=== PATIENT | male | born 1960 | race African-American/Black ===

== ENCOUNTER 2022-05-14 11:56 | Emergency (ER) | payer MEDICARE, OTHER, SELFPAY ==
[2022-05-14] VITALS (15 sets, daily range): BP systolic 125–138; BP diastolic 59–68; PULSE 65–77; RESP 14–28; TEMP 37.5–37.6; O2SAT 96–99
--- NOTE | ~2022-05-14 | CT_ITS ---
EXAMINATION: CT brain wo con DATE: 05/14/2022 13:17 INDICATION: Dizziness for 2 months. TECHNIQUE: Computed tomography (CT) of the head was performed without intravenous contrast. The dose- length product was 681.00 mGy-cm. Automated exposure control and iterative reconstruction technique w ere employed. COMPARISON: None FINDINGS: Generalized atrophy. There are scattered mild periventricular and subcortical white matter changes, most likely related to small vessel ischemic disease (microangiopathy). No acute intracrania l hemorrhage, infarction, mass or mass effect. There is intracranial atherosclerosis. Paranasal sinus es demonstrate mild mucosal thickening of the maxillary and ethmoid sinuses. There is a left mastoid effusion. IMPRESSION: 1. No acute intracranial abnormality. 2: Chronic age-related findings. Reviewed, dictated and finalized at location A.
--- NOTE | 2022-05-14 11:58 | ECG_ITS ---
Measurements Intervals [place] Rate: 75 P: 37 CO: 144 QRS: -2 QRSD: 93 T: 70 QT: 380 QTc: 426 Interpretive Statements SINUS RHYTHM NONSPECIFIC T-WAVE ABNORMALITY ABNORMAL ECG NO PREVIOUS ECG AVAILABLE FOR COMPARISON Electronically Signed On 05-14-2022 14:36:36 CDT by Randal Alvarez M.D.
--- NOTE | 2022-05-14 12:50 | ED.DIZZY ---
HPI - Dizziness General Chief Complaint: Dizziness Stated Complaint: dizzy Time Seen by Provider: 05/14/22 12:44 History of Present Illness HPI Narrative: Patient is a 61-year-old male here for evaluation of intermittent lightheadedness over the past 2 months. Patient states that dizziness will come on without obvious trigger, and is accompanied by a right-sided throbbing headache. He states that it has worsened in nature over the past 2 months, and his episodes are becoming more frequent. He did have a syncopal episode 2 days ago after standing for a prolonged period of time which was preceded by the lightheadedness. Took his BP at that time and was noted to be low. No blood thinner use. He denies any preceding chest pain or shortness of breath prior to the syncopal episode. Patient was seen at the [facility] 2 days ago for this, he had blood work ordered, but states that he did not want to wait for the results and wanted to be evaluated today. He denies any weakness, visual changes, chest pain, shortness of breath, abdominal pain, nausea, vomiting, ear pain or decreased hearing. Related Data Home Medications Medication Instructions Recorded Confirmed alcohol swabs (Alcohol Prep Pads) See Rx Instructions .Route .COMPLEX 02/20/22 alogliptin 25 mg tablet See Rx Instructions .Route .COMPLEX 02/20/22 alprostadil 40 mcg intracavernosal See Rx Instructions .Route .COMPLEX 02/20/22 kit amlodipine 10 mg tablet (Norvasc) See Rx Instructions .Route .COMPLEX 02/20/22 blood sugar diagnostic (Accu-Chek 02/20/22 Guide test strips) bupropion HCl 150 mg tablet,12 hr See Rx Instructions .Route .COMPLEX 02/20/22 sustained-release carvedilol 6.25 mg tablet 6.25 mg PO Q12H 02/20/22 cholecalciferol (vitamin D3) 25 25 mcg PO DAILY 02/20/22 mcg (1,000 unit) tablet empagliflozin 25 mg tablet 25 mg PO DAILY 02/20/22 erythromycin 5 mg/gram (0.5 %) eye See Rx Instructions .Route .COMPLEX 02/20/22 ointment glucose 4 gram chewable tablet See Rx Instructions .Route 02/20/22 .COMPLEX PRN metformin 1,000 mg tablet 1,000 mg PO BID 02/20/22 nicotine 21 mg/24 hr daily See Rx Instructions .Route .COMPLEX 02/20/22 transdermal patch omeprazole 20 mg capsule,delayed See Rx Instructions .Route .COMPLEX 02/20/22 release rosuvastatin 40 mg tablet See Rx Instructions .Route .COMPLEX 02/20/22 sertraline 100 mg tablet 100 mg PO QAM 02/20/22 sildenafil 50 mg tablet See Rx Instructions .Route .COMPLEX 02/20/22 spironolactone 25 mg tablet 25 mg PO DAILY 02/20/22 trazodone 100 mg tablet 100 mg PO QHS 02/20/22 Allergies Allergy/AdvReac Type Severity Reaction Status Date / Time No Known Allergies Allergy Mild Verified 08/16/10 16:15 Review of Systems Review of Systems: Gen: Denies fevers or chills Eyes: Denies eye pain or visual change ENT: Denies congestion Respiratory: Denies shortness of breath or cough CV: Denies chest pain or palpitations GI: Denies abdominal pain nausea, emesis or diarrhea : denies burning, urgency, frequency or hematuria Musculoskeletal: Denies back pain or muscle pain Neuro: Reports dizziness and right-sided headache. Denies numbness, tingling, weakness or focal weakness Skin: Denies rash Except as documented, all other systems reviewed and negative [facility] Past Medical History Medical History Depression Diabetes mellitus HLD (hyperlipidemia) HTN (hypertension) Family History Family History (Updated 02/20/22 @ 11:10 by Dang Real) Father , 72 Cancer Mother , 80 Diabetes mellitus Social History Social History (Updated 02/20/22 @ 11:09 by Dang Real) Social History: Patient does not drink caffeine. Smoking packs per day: 0.5 Smoking cigarettes per day: 10.0 Years smoked: 40 Smoking pack-years: 20.00 Smoking status: Current every day smoker Tobacco type: cigarettes Second hand tobacco smoke exposur
[2022-05-14 12:59] LABS: Alanine Aminotransferase 18 U/L (6-50); Albumin Level 3.9 g/dL (3.5-5.1); Alkaline Phosphatase 92 U/L (38-126); Anion Gap 9 mmol/L (8-16); Aspartate Amino Transferase 23 U/L (17-59); Bilirubin,Total 0.8 mg/dL (0.2-1.3); Blood Urea Nitrogen 10 mg/dL (9-20); Calcium 8.7 mg/dL (8.4-10.2); Carbon Dioxide 22 mmol/L (22-30); Chloride 101 mmol/L (98-107); Estimated CRCL calculation 84 ml/min; Estimated Glomerular Filt Rate > 60; Glucose 248 mg/dL (65-110); Potassium 3.7 mmol/L (3.4-5.0); Sodium 132 mmol/L (137-145)
[2022-05-14 13:04] LABS: Basophils Percent Auto 0.3 % (0.2-1.2); Eosinophils Absolute Auto 0.1 K/mm3 (0-0.3); Eosinophils Percent Auto 0.7 % (0-4.4); Hematocrit 39.3 % (42.0-52.0); Hemoglobin 13.5 g/dL (14.0-18.0); Immature Granulocyte Absolute 0.05 K/mm3 (0.00-0.031); Immature Granulocyte Percent A 0.5 % (0-0.5); Lymphocytes Absolute Auto 2.57 K/mm3 (0.9-3.2); Lymphocytes Percent Auto 27.5 % (18.3-44.2); Mean Corpuscular HGB Conc 34.4 g/dl (32-36); Mean Corpuscular Hemoglobin 32.6 pg (26-34); Mean Corpuscular Volume 94.9 fl (80-100); Mean Platelet Volume 9.3 fl (7.4-10.4); Monocytes Absolute Auto 0.8 K/mm3 (0.1-0.6); Monocytes Percent Auto 8.1 % (2.6-8.5); Neutrophils Absolute Auto 5.9 K/mm3 (1.3-6.7); Neutrophils Percent Auto 62.9 % (45.5-73.1); Platelet Count Result 299 k/mm3 (150-375); Red Blood Count 4.14 M/mm3 (4.6-6.20); Red Cell Distribution Width 12.2 % (11.5-14.5); White Blood Count 9.4 K/mm3 (4.5-10.0)
[2022-05-14] MEDS: ACETAMINOPHEN/ASPIRIN/CAFFEINE 250-250-65 MG TABLET 1 TABLET PO (13:32)
[2022-05-14] MEDS: MECLIZINE HCL 25 MG TABLET PO (13:33)
== END 2022-05-14 14:10 | disposition home or self-care (01) ==
PROVIDERS: Emergency Provider Emergency Medicine; PCP Emergency Medicine
DX: R42 Dizziness and giddiness (principal); E11.9 Type 2 diabetes mellitus without complications; E78.5 Hyperlipidemia, unspecified; I10 Essential (primary) hypertension; F32.A Depression, unspecified; F17.210 Nicotine dependence, cigarettes, uncomplicated; Z79.84 Long term (current) use of oral hypoglycemic drugs; R94.31 Abnormal electrocardiogram [ECG] [EKG]
CPT/HCPCS: 36415; 70450; 80053; 85025; 93005; 99284; A9270

== ENCOUNTER 2023-09-30 12:32 | Emergency (ER) | payer MEDICARE, OTHER, SELFPAY ==
[2023-09-30] VITALS (23 sets, daily range): BP systolic 120–153; BP diastolic 55–87; PULSE 72–100; RESP 14–21; TEMP 36.9; O2SAT 96–100
--- NOTE | ~2023-09-30 | XR_ITS ---
XR chest 2V DATE: 09/30/2023 13:07 INDICATION: Chest pain and cough for 3 days. TECHNIQUE: AP and lateral views COMPARISON: None FINDINGS: Normal heart size. No hilar or mediastinal enlargement. No pulmonary infiltrate or consolidation, pleural effusion or pulmonary vascular congestion or pneumo thorax is detected. There is degenerative spurring of the thoracic spine. IMPRESSION: No active cardiopulmonary disease Degenerative change of the thoracic spine Reviewed, dictated and finalized at location A. ALLY IMPAIRED TEACHER
--- NOTE | 2023-09-30 12:35 | ECG_ITS ---
Measurements Intervals [place] Rate: 78 P: 31 [place]: 141 QRS: -1 QRSD: 91 T: 11 QT: 371 QTc: 425 Interpretive Statements SINUS RHYTHM NONSPECIFIC T-WAVE ABNORMALITY COMPARED TO ECG 05/14/2022 11:59:44 NO SIGNIFICANT CHANGES Electronically Signed On 09-30-2023 13:56:53 SALES APPOINTMENT COORDINATOR by Tish Pleitez M.D.
[2023-09-30] MEDS: ASPIRIN 81 MG CHEWABLE TABLET 324 MG PO (12:52)
[2023-09-30] MEDS: NITROGLYCERIN SL 0.4 MG TABLET SUBLINGUAL (12:53)
--- NOTE | 2023-09-30 12:58 | PC.NURSE ---
pt states they had chest pain relief after one nitro administration
[2023-09-30 12:59] LABS: Basophils Percent Auto 0.5 % (0.2-1.2); Eosinophils Absolute Auto 0.1 K/mm3 (0-0.3); Eosinophils Percent Auto 1.1 % (0-4.4); Hematocrit 43.9 % (42.0-52.0); Hemoglobin 15.1 g/dL (14.0-18.0); Immature Granulocyte Absolute 0.05 K/mm3 (0.00-0.031); Immature Granulocyte Percent A 0.6 % (0-0.5); Lymphocytes Absolute Auto 2.79 K/mm3 (0.9-3.2); Lymphocytes Percent Auto 35.3 % (18.3-44.2); Mean Corpuscular HGB Conc 34.4 g/dl (32-36); Mean Corpuscular Hemoglobin 32.1 pg (26-34); Mean Corpuscular Volume 93.2 fl (80-100); Mean Platelet Volume 9.3 fl (7.4-10.4); Monocytes Absolute Auto 0.7 K/mm3 (0.1-0.6); Monocytes Percent Auto 8.5 % (2.6-8.5); Neutrophils Absolute Auto 4.3 K/mm3 (1.3-6.7); Platelet Count Result 353 k/mm3 (150-375); Red Blood Count 4.71 M/mm3 (4.6-6.20); Red Cell Distribution Width 12.3 % (11.5-14.5); White Blood Count 7.9 K/mm3 (4.5-10.0)
[2023-09-30 13:10] LABS: Prothrombin Time 13.6 Seconds (11.1-14.7)
[2023-09-30 13:11] LABS: Partial Thromboplastin Time 29.6 SECONDS (22.3-36.8)
[2023-09-30 13:23] LABS: Alanine Aminotransferase 17 U/L (6-50); Albumin Level 4.1 g/dL (3.5-5.1); Alkaline Phosphatase 103 U/L (38-126); Anion Gap 10 mmol/L (8-16); Aspartate Amino Transferase 21 U/L (17-59); Bilirubin,Total 0.8 mg/dL (0.2-1.3); Blood Urea Nitrogen 5 mg/dL (9-20); Calcium 9.5 mg/dL (8.4-10.2); Carbon Dioxide 22 mmol/L (22-30); Chloride 105 mmol/L (98-107); Estimated CRCL calculation 81 ml/min; Estimated Glomerular Filt Rate > 60; Glucose 232 mg/dL (65-110); Lipase 56 U/L (23-300); Potassium 3.9 mmol/L (3.4-5.0); Sodium 137 mmol/L (137-145)
[2023-09-30 13:35] LABS: Troponin I < 0.012 ng/mL (0.000-0.034)
--- NOTE | 2023-09-30 15:30 | ECG_ITS ---
Measurements Intervals [place] Rate: 69 P: 31 [place]: 139 QRS: 0 QRSD: 102 T: 60 QT: 368 QTc: 396 Interpretive Statements SINUS RHYTHM NONSPECIFIC T-WAVE ABNORMALITY COMPARED TO ECG 09/30/2023 12:40:44 NO SIGNIFICANT CHANGES Electronically Signed On 09-30-2023 17:38:38 SOCIAL MEDIA SR STRATEGY MANAGER by Tish Pleitez M.D.
[2023-09-30 16:00] LABS: Troponin I < 0.012 ng/mL (0.000-0.034)
--- NOTE | 2023-09-30 16:01 | ED.CHESTPAIN ---
HPI - Chest Pain General Chief Complaint: Chest Pain Stated Complaint: chest pain Time Seen by Provider: 09/30/23 12:36 History of Present Illness HPI narrative: Patient is a 62-year-old male who presents ER with central chest pain. Intermittent over the last 3-4 days. No aggravating factors. Central pressure. Today's worse than the previous days. Mild dyspnea. No diaphoresis. No history of heart disease but does have diabetes /hypertension / hyperlipidemia. He is a smoker. No alleviating factors for his chest discomfort. No acid reflux. No association with eating or drinking. Related Data Home Medications Medication Instructions Recorded Confirmed alcohol swabs (Alcohol Prep Pads) See Rx Instructions .Route .COMPLEX 02/20/22 alogliptin 25 mg tablet See Rx Instructions .Route .COMPLEX 02/20/22 alprostadil 40 mcg intracavernosal See Rx Instructions .Route .COMPLEX 02/20/22 kit amlodipine 10 mg tablet (Norvasc) See Rx Instructions .Route .COMPLEX 02/20/22 blood sugar diagnostic (Accu-Chek 02/20/22 Guide test strips) bupropion HCl 150 mg tablet,12 hr See Rx Instructions .Route .COMPLEX 02/20/22 sustained-release carvedilol 6.25 mg tablet 6.25 mg PO Q12H 02/20/22 cholecalciferol (vitamin D3) 25 25 mcg PO DAILY 02/20/22 mcg (1,000 unit) tablet empagliflozin 25 mg tablet 25 mg PO DAILY 02/20/22 erythromycin 5 mg/gram (0.5 %) eye See Rx Instructions .Route .COMPLEX 02/20/22 ointment glucose 4 gram chewable tablet See Rx Instructions .Route 02/20/22 .COMPLEX PRN metformin 1,000 mg tablet 1,000 mg PO BID 02/20/22 nicotine 21 mg/24 hr daily See Rx Instructions .Route .COMPLEX 02/20/22 transdermal patch omeprazole 20 mg capsule,delayed See Rx Instructions .Route .COMPLEX 02/20/22 release rosuvastatin 40 mg tablet See Rx Instructions .Route .COMPLEX 02/20/22 sertraline 100 mg tablet 100 mg PO QAM 02/20/22 sildenafil 50 mg tablet See Rx Instructions .Route .COMPLEX 02/20/22 spironolactone 25 mg tablet 25 mg PO DAILY 02/20/22 trazodone 100 mg tablet 100 mg PO QHS 02/20/22 Allergies Allergy/AdvReac Type Severity Reaction Status Date / Time No Known Allergies Allergy Mild Verified 08/16/10 16:15 Review of Systems Review of Systems: All systems reviewed & are unremarkable except as noted in HPI and below Constitutional: Constitutional: Reports no additional constitutional complaints ENT: Reports system reviewed and no additional complaints, except as documented Cardiovascular: Cardiovascular: Reports chest pain, Denies rapid heart rate and Denies radiating jaw, neck or arm pain Respiratory: Respiratory: Denies cough, Reports dyspnea and Denies wheezing Gastrointestinal: Gastrointestinal: Reports no additional gastrointestinal complaints Musculoskeletal: Musculoskeletal: Reports no additional musculoskeletal complaints [facility] Past Medical History Medical History Depression Diabetes mellitus HLD (hyperlipidemia) HTN (hypertension) Family History Family History (Updated 02/20/22 @ 11:10 by Dang Real) Father , 72 Cancer Mother , 80 Diabetes mellitus Social History Social History (Updated 02/20/22 @ 11:09 by Dang Real) Social History: Patient does not drink caffeine. Smoking packs per day: 0.5 Smoking cigarettes per day: 10.0 Years smoked: 40 Smoking pack-years: 20.00 Smoking status: Current every day smoker Tobacco type: cigarettes Second hand tobacco smoke exposure: Yes Alcohol intake: current Drinks per week: 21 Alcohol use details: Patient drinks 3 shots daily Substance use: never Substance use type: does not use Living arrangements: alone Occupation/Education: retired Gender identity (if verbalized by the patient): Male Sexual Orientation (if Verbalized by the Patient): Straight or Heterosexual Exam Narrative: GENERAL: Well-appea
== END 2023-09-30 16:27 | disposition left against medical advice (07) ==
PROVIDERS: Emergency Provider Emergency Medicine; PCP Emergency Medicine
DX: R07.9 Chest pain, unspecified (principal); E11.9 Type 2 diabetes mellitus without complications; I10 Essential (primary) hypertension; E78.5 Hyperlipidemia, unspecified; F17.210 Nicotine dependence, cigarettes, uncomplicated
CPT/HCPCS: 36415; 71046; 80053; 83690; 84484; 85025; 85610; 85730; 93005; 99284; A9270

== ENCOUNTER 2024-05-01 15:13 | Outpatient (CLI) | payer MEDICARE, OTHER, SELFPAY ==
[2024-05-01 16:45] LABS: Hemoglobin A1C 7.6 % (<5.7)
== END 2024-05-01 15:14 | disposition home or self-care (01) ==
LOC: ANHLAB 15:15
PROVIDERS: PCP Emergency Medicine; Visit Provider Emergency Medicine
DX: E11.9 Type 2 diabetes mellitus without complications (principal)
CPT/HCPCS: 36415; 83036

== ENCOUNTER 2024-09-15 22:35 | Emergency (ER) | payer MEDICARE, OTHER, SELFPAY ==
[2024-09-15] VITALS (11 sets, daily range): BP systolic 147–160; BP diastolic 71–76; PULSE 75–77; RESP 21–23; TEMP 36.4; O2SAT 97–99
--- NOTE | ~2024-09-15 | CT_ITS ---
EXAMINATION: CT brain wo con DATE: 09/15/2024 23:14 INDICATION: r/o cva . TECHNIQUE: Computed tomography (CT) of the head was performed without intravenous contrast. The mA wa s adjusted according to patient size. Iterative reconstruction technique was employed. The dose-lengt h product was 681.00 mGy-cm. COMPARISON: 05/14/2022. FINDINGS: No acute intracranial hemorrhage or extra-axial fluid collection. No hydrocephalus, mass, or herniation. No acute ischemic infarct. Unremarkable dural venous sinus attenuation. No acute osseous abnormality. Poorly pneumatized right mastoid air cells. Left mastoid fluid. Ethmoid and bilateral maxillary mucos al thickening. Mild atrophy and chronic white matter change. Atherosclerotic intracranial calcification. IMPRESSION: No acute intracranial process. Reviewed, dictated and finalized at location K. Y WHEEL WORKER
--- NOTE | ~2024-09-15 | CT_ITS ---
CT ANGIOGRAM NECK AND HEAD History: Headache, vision changes. Technique: Serial spiral axial images through the head and neck were obtained during arterial phase I V injection of 100 cc of Omnipaque 350. 3-D postprocessing and MIP images were then reconstructed on the remote workstation. Dose reduction technique was used on this scan by utilizing automated exposur e control and iterative reconstruction technique. The dose-length product (DLP) was 1267.12 mGy-cm. CTA neck findings: Bilateral vertebral arteries are patent. Bilateral common carotid, internal carot id, external carotid arteries are patent. No large vessel occlusion or stenosis. No aneurysm. The pro ximal right internal carotid artery demonstrates 0% stenosis relative to the normal distal artery lum en diameter. The proximal left internal carotid artery demonstrates 0% stenosis relative to the ricarda l distal artery lumen diameter. CTA head findings: Distal vertebral arteries, basilar artery, and posterior cerebral arteries are pat ent. Distal internal carotid arteries, middle cerebral arteries, and anterior cerebral arteries are p atent. No large vessel occlusion or high-grade stenosis. No aneurysm. Impression: No significant vascular abnormality. Reviewed, dictated and finalized at location . R COACH OPERATOR Impression: No significant vascular abnormality.
--- NOTE | ~2024-09-15 | XR_ITS ---
EXAMINATION: XR chest 1V portable Exam Date/Time: 09/15/2024 23:30 CHEMICAL CELL CHANGER HISTORY: r/o cva HEADACHE MEMORY PROBLEMS Comparison: 09/30/2023. RESULT: Lines, tubes, and devices: Rectangular or tubular density overlying the mid chest, likely external a rtifact. Lungs and pleura: Lordotic positioning. Low volumes with crowding. Mild diffuse reticular opacities. Streaky right basilar atelectasis. Cardiomediastinal silhouette: Stable. Other: No acute osseous or upper abdominal finding. IMPRESSION: Mild interstitial opacities may be secondary to bronchovascular crowding or mild interstitial edema. Reviewed, dictated and finalized at location K. ICAL CELL CHANGER IMPRESSION: Mild interstitial opacities may be secondary to bronchovascular crowding or mil d interstitial edema.
--- NOTE | 2024-09-15 22:59 | ECG_ITS ---
Test Date: 2024-09-15 23:02:32 Measurements Intervals [place] Rate: 75 P: 36 [place]: 148 QRS: 4 QRSD: 91 T: 100 QT: 375 QTc: 419 Interpretive Statements SINUS RHYTHM NONSPECIFIC T-WAVE ABNORMALITY No previous ECG available for comparison Electronically Signed On 09-16-2024 18:49:06 FINE ARTS TEACHER by Yair Soto
[2024-09-15 23:10] LABS: Basophils Percent Auto 0.4 % (0.2-1.2); Eosinophils Absolute Auto 0.1 K/mm3 (0-0.3); Eosinophils Percent Auto 1.7 % (0-4.4); Hemoglobin 13.6 g/dL (14.0-18.0); Immature Granulocyte Absolute 0.02 K/mm3 (0.00-0.031); Immature Granulocyte Percent A 0.3 % (0-0.5); Lymphocytes Absolute Auto 3.06 K/mm3 (0.9-3.2); Lymphocytes Percent Auto 39.9 % (18.3-44.2); Mean Corpuscular HGB Conc 34.9 g/dl (32-36); Mean Corpuscular Hemoglobin 32.5 pg (26-34); Mean Corpuscular Volume 93.3 fl (80-100); Mean Platelet Volume 9.4 fl (7.4-10.4); Monocytes Absolute Auto 0.7 K/mm3 (0.1-0.6); Monocytes Percent Auto 8.6 % (2.6-8.5); Neutrophils Absolute Auto 3.8 K/mm3 (1.3-6.7); Neutrophils Percent Auto 49.1 % (45.5-73.1); Platelet Count Result 251 k/mm3 (150-375); Red Blood Count 4.18 M/mm3 (4.6-6.20); White Blood Count 7.7 K/mm3 (4.5-10.0)
[2024-09-15 23:21] LABS: Glucose Point of Care 331 mg/dl (65-105)
[2024-09-15 23:23] LABS: Alanine Aminotransferase 16 U/L (6-50); Albumin Level 4.2 g/dL (3.5-5.1); Alkaline Phosphatase 75 U/L (38-126); Anion Gap 4 mmol/L (4-12); Aspartate Amino Transferase 22 U/L (17-59); Bilirubin,Total 0.6 mg/dL (0.2-1.3); Blood Urea Nitrogen 13 mg/dL (9-20); Calcium 8.8 mg/dL (8.4-10.2); Carbon Dioxide 27 mmol/L (22-30); Chloride 105 mmol/L (98-107); Estimated CRCL calculation 65 ml/min; Estimated Glomerular Filt Rate > 60; Glucose 314 mg/dL (65-110); Potassium 4.1 mmol/L (3.4-5.0); Sodium 136 mmol/L (137-145)
[2024-09-15 23:24] LABS: Prothrombin Time 13.2 Seconds (11.1-14.7)
[2024-09-15 23:35] LABS: Troponin I < 0.012 ng/mL (0.000-0.034)
[2024-09-16] VITALS (28 sets, daily range): BP systolic 121–157; BP diastolic 52–84; PULSE 67–79; RESP 12–26; O2SAT 92–100
--- NOTE | 2024-09-16 00:30 | ED.NEUROSD ---
HPI - Neuro Symptoms/Deficit General Chief Complaint: Neuro Symptoms/Deficit Stated Complaint: Headache, Altered Mental Status Source: patient Mode of arrival: ambulatory Limitations: no limitations History of Present Illness HPI Narrative: patient presents with report of a headache that has been gradual in nature, starting approximately 10:00 a.m.. He states he does not frequently get a headache but it does feel similar to headaches he has gotten he has got headaches before. He is also concerned because his vision is blurred bilaterally Intermittently. He occasionally has floaters as well, bilaterally but right more noticeable than the left. Patient states he does use reading glasses but they were not just [id number] they were a prescription and he has an director of operations for therapy. He denies any curtain link defect although he does state that he had that time ago Which resolved. in addition, he found it difficult to perform simple tasks. 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 In addition he has been more forgetful with a mental fogginess And memory issues /confusion that he states has now resolved. He states he could remember which way to go to take his daughter to school. he is on amlodipine for hypertension. He denies any photophobia or phonophobia. no diplopia. He states with the blurred vision it does not matter whether he has both eyes open or each eye independently. He is having bilateral pain at his temples and bilateral eye pain. He has a history of diabetes mellitus not on insulin. He states his neck has been somewhat painful but not stiff. He did not take any medications at home. He denies any trauma or anticoagulation. Denies any fevers. No other house members with similar symptoms. Denies nausea. Related Data Home Medications ?Medication ?Instructions ?Recorded ?Confirmed ?Last Taken ?Type alcohol swabs (Alcohol Prep Pads) See Rx Instructions .Route .COMPLEX 02/20/22 Unknown History alogliptin 25 mg tablet See Rx Instructions .Route .COMPLEX 02/20/22 Unknown History alprostadil 40 mcg intracavernosal See Rx Instructions .Route .COMPLEX 02/20/22 Unknown History kit amlodipine 10 mg tablet (Norvasc) See Rx Instructions .Route .COMPLEX 02/20/22 09/15/24 09/15/24 History blood sugar diagnostic (Accu-Chek 02/20/22 Unknown History Guide test strips) bupropion HCl 150 mg tablet,12 hr See Rx Instructions .Route .COMPLEX 02/20/22 Unknown History sustained-release carvedilol 6.25 mg tablet 6.25 mg PO Q12H 02/20/22 Unknown History cholecalciferol (vitamin D3) 25 25 mcg PO DAILY 02/20/22 Unknown History mcg (1,000 unit) tablet empagliflozin 25 mg tablet 25 mg PO DAILY 02/20/22 Unknown History erythromycin 5 mg/gram (0.5 %) eye See Rx Instructions .Route .COMPLEX 02/20/22 Unknown History ointment glucose 4 gram chewable tablet See Rx Instructions .Route 02/20/22 Unknown History .COMPLEX PRN metformin 1,000 mg tablet 1,000 mg PO BID 02/20/22 09/15/24 09/15/24 History nicotine 21 mg/24 hr daily See Rx Instructions .Route .COMPLEX 02/20/22 Unknown History transdermal patch omeprazole 20 mg capsule,delayed See Rx Instructions .Route .COMPLEX 02/20/22 Unknown History release rosuvastatin 40 mg tablet See Rx Instructions .Route .COMPLEX 02/20/22 Unknown History sertraline 100 mg tablet 100 mg PO QAM 02/20/22 Unknown History sildenafil 50 mg tablet See Rx Instructions .Route .COMPLEX 02/20/22 Unknown History spironolactone 25 mg tablet 25 mg PO DAILY 02/20/22 Unknown History trazodone 100 mg tablet 100 mg PO QHS 02/20/22 Unknown History Allergies Allergy/AdvReac Type Severity Reaction Status Date / Time No Known Allergies Allergy Mild Verified 09/15/24 23:00 PENDING SALE TO [facility] Past Medical History Medical History Depression HLD (hyperlipidemia) HTN (hypertension) Diabetes mellitus non insulin dependent Family History Family History Father , 72 Cancer Mother , 80 Diabetes mellitus Social History Social History Social History: Patient does not drink caffeine. Smoking packs per day: 0.5 Smoking cigarettes per day: 10.0 Years smoked: 40 Smoking pack-years: 20.00 Smoking status: Current every day smoker Tobacco type: cigarettes Second hand tobacco smoke exposure: Yes Alcohol intake: current Drinks per week: 21 Alcohol use details: Patient drinks 3 shots daily Substance use: never Substance use type: does not use Living arrangements: alone Occupation/Education: retired Gender identity (if verbalized by the patient): Male Sexual Orientation (if Verbalized by the Patient): Straight or Heterosexual Exam Narrative: GENERAL: Well-appearing, well-nourished, and in no acute distress. HEAD: Normocephalic, atraumatic. No TTP of bilateral temples. EYES: Non injected, non icteric. PERRL, 3mm bilaterally. Attempted fundoscopic exam bilaterally but unable to visualize optic disc. EOMI without nystagmus Horizontally or vertically. no restriction in movement of eyes in all directions. No gaze palsy. Peripheral vision without deificits/hemianopia. No APD. ENT: Nares clear, no rhinorrhea or epistaxis. NECK: Supple. demonstrates full range of motion with ability to flex and extend neck as well as perform rotational movement. Not held in fixed position. CHEST: Speaking in full sentences. No respiratory distress. HEART: Regular rate and rhythm. . ABDOMEN: Soft, nondistended. EXTREMITIES: Normal range of motion. No lower extremity edema. SKIN: Warm, dry, no rash. NEURO: No focal deficits. Alert and oriented x3. No lorna ataxia on [id number] in terms of there is no shakiness but the movement is less smooth than typical bilaterally, presumably the blurred vision is causing apraxia. no abnormal movements appreciated. Sensation intact to gross touch throughout. Speaks clearly without aphasia or dysarthria. Facial symmetry. PSYCH: Normal mood and affect. Course Vital Signs Vital signs: Vital Signs Pulse Rate 76 09/15/24 22:49 Respiratory Rate 22 H 09/15/24 22:49 Blood Pressure 160/76 H 09/15/24 22:49 Pulse Oximetry 99 09/15/24 22:49 Temperature 97.6 F 09/15/24 22:54 Pulse Rate 72 09/16/24 04:50 Respiratory Rate 17 09/16/24 04:50 Blood Pressure 150/84 H 09/16/24 04:50 Pulse Oximetry 100 09/16/24 04:50 MDM - Neuro Symptoms/Deficit MDM Narrative Medical decision making narrative: Patient presents with concern for a headache as well as Intermittent blurred vision and some forgetfulness/mental fogginess. in the emergency department he is afebrile with vital signs notable for mild tachypnea Initially and hypertension. After obtaining the patient's history and performing a physical exam, the headache is most likely due to benign etiology. The extensive neurological examination is non-focal, there are no high-risk features on history, vital signs are stable, and the patient is non-toxic appearing. The Ddx for the patient's headache is tension headache, migraine, or other headache of non-emergent etiology. Unlikely SAH: headache is non-thunderclap. Headache is gradual, non-maximal at onset and similar to headaches in the past. Unlikely subdural/epidural hematoma: no history of trauma, no anticoagulation Unlikely meningitis: afebrile, no meningismus, no photophobia Unlikely temporal arteritis: Although pt >60 years old, No tenderness in temporal area and has eye pain whereas this would typically be painless. Also no visual loss in one eye and without APD. Unlikely acute angle glaucoma: Bilateral eye pain but PERRL Unlikely carbon monoxide poisoning: no other house members with similar symptoms Nevertheless, given visual concerns, will pursue CT imaging as well. Hyperglycemia without anion gap acidosis. Pseudohyponatremia as it corrects to 139-141 in the setting of hyperglycemia. I believe that his visual symptoms are claims representative of diabetic retinopathy. Attempted to Perform fundoscopy but unable to visualize optic disc. Visual acuity L 20/50 and R 20/40 by verbal report by jadyn Vogt. The plan was to treat patient's headache symptomatically with ketorolac, benadryl, compazine but he declined per RN. He is offered 1000mg acetaminophen instead. Will be discharged with strict return precautions and instructions to follow up with their PCP / director of operations for therapy in the next 1-2 days. Provided prescriptions for [id number] analgesics medications and advised he take medications as prescribed. Differential Diagnosis Differential diagnosis: Likely subarachnoid hemorrhage, cerebrovascular accident, transient cerebral ischemia and other ( intracranial hemorrhage, infection, hypertensive emergency) Lab Data Attestation: I reviewed the patient's lab results. 09/15/24 23:04 09/15/24 23:04 Labs: Lab Results 09/15/24 09/15/24 09/16/24 Range/Units 22:55 23:04 01:58 WBC 7.7 (4.5-10.0) K/mm3 RBC 4.18 L (4.6-6.20) M/mm3 Hgb 13.6 L (14.0-18.0) g/dL Hct 39.0 L (42.0-52.0) % MCV 93.3 (80-100) fl MCH 32.5 (26-34) pg MCHC 34.9 (32-36) g/dl RDW 12.0 (11.5-14.5) % Plt Count 251 (150-375) k/mm3 MPV 9.4 (7.4-10.4) fl Immature Gran % (Auto) 0.3 (0-0.5) % Neut % (Auto) 49.1 (45.5-73.1) % Lymph % (Auto) 39.9 (18.3-44.2) % [place] % (Auto) 8.6 H (2.6-8.5) % Eos % (Auto) 1.7 (0-4.4) % Baso % (Auto) 0.4 (0.2-1.2) % Lymph # (Auto) 3.06 (0.9-3.2) K/mm3 [place] # (Auto) 0.7 H (0.1-0.6) K/mm3 Eos # (Auto) 0.1 (0-0.3) K/mm3 Baso # (Auto) 0.0 (0.0-0.1) K/mm3 Abs Immat Gran (auto) 0.02 (0.00-0.031) K/mm3 Absolute Neuts (auto) 3.8 (1.3-6.7) K/mm3 Absolute Nucleated RBC 0.000 (0.0-0.012) K/mm3 Nucleated RBC % 0.0 (0.0-0.2) % PT 13.2 (11.1-14.7) Seconds INR 1.0 APTT 26.0 (22.3-36.8) Seconds Sodium 136 L (137-145) mmol/L Potassium 4.1 (3.4-5.0) mmol/L Chloride 105 (98-107) mmol/L Carbon Dioxide 27 (22-30) mmol/L Anion Gap 4 (4-12) mmol/L BUN 13 D (9-20) mg/dL Creatinine 1.20 (0.7-1.3) mg/dL Estim Creat Clear Calc 65 ml/min Estimated GFR > 60 (59 - ) Glucose 314 H (65-110) mg/dL POC Capillary Glucose 331 H (65-105) mg/dl Calcium 8.8 (8.4-10.2) mg/dL Total Bilirubin 0.6 (0.2-1.3) mg/dL AST 22 (17-59) U/L ALT 16 (6-50) U/L Alkaline Phosphatase 75 (38-126) U/L Troponin I < 0.012 (0.000-0.034) ng/mL Total Protein 7.0 (6.3-8.2) g/dL Albumin 4.2 (3.5-5.1) g/dL Urine Color Yellow (Yellow) Urine Appearance Clear (Clear) Urine pH 5.5 (5.0-9.0) Ur Specific [place] 1.032 (1.001-1.035) Urine Protein Trace (Negative) mg/dL Urine Glucose (UA) 3+ H (Negative) mg/dL Urine Ketones Trace H (Negative) mg/dL Ur Blood (Man) Negative (Negative) Urine Nitrate Negative (Negative) Urine Bilirubin Negative (Negative) Urine Urobilinogen 1.0 (<2.0) mg/dL Leukocyte Esterase Rfl Negative (Negative) RICK/UL Urine RBC 0-2 (0-2) /hpf Urine WBC 0-5 (0-3) /hpf Ur Squamous Epith Cells None seen (Few) /hpf Urine Bacteria None seen /hpf Urine Casts 0-2 Urine Opiates Screen Negative (Negative) Urine Methadone Screen Negative (Negative) Ur Barbiturates Screen Negative (Negative) Ur Phencyclidine Scrn Negative (Negative) Ur Amphetamine Screen Negative (Negative) U Benzodiazepines Scrn Negative (Negative) Urine Cocaine Screen Negative (Negative) U Cannabinoids Screen Negative (Negative) Influenza A (RT-PCR) Negative (Negative) Influenza B (RT-PCR) Negative (Negative) RSV (RT-PCR) Negative (Negative) SARS-CoV-2 RNA (RT-PCR) Negative (Negative) Imaging Data Radiologist's impression: Stat Rad CTA HEAD/NECK: No include occlusion, severe stenosis, or aneurysm. No significant stenosis or dissection. ECG Data EKG #1: Attestation: I personally reviewed and interpreted this ECG as follows: ECG completion date: 09/16/24 ECG completion time: 23:02 Interpretation: Normal sinus rhythm at a rate of 75 beats per minute. W[place] interval 148. QRS 91. QT/ QTC 375/403. Good R-wave progression across the precordial leads. T-wave flattening in 2 but upright and normal in contiguous 3 and AVF. Biphasic T-waves in V5 and V6. Discharge Plan Discharge Clinical Impression: Headache, Normocytic anemia, Diabetes mellitus with hyperglycemia, Pseudohyponatremia, Glucosuria, Blurred vision Patient Disposition: Home, Self-Care Condition: Stable Instructions: Antibiotic Form, Diabetic Retinopathy (ED), Acute Headache (DC), Blurred Vision (ED), Anemia (ED), Diabetic Hyperglycemia (ED), Mediterranean Diet (DC) Additional Instructions: As discussed, I do believe that your vision symptoms might represent diabetic retinopathy. Your blood sugar was elevated though not to a degree necessitating hospitalization. It is important you take all of your medications as prescribed and follow[facility]up with [facility] Please follow-up with your director of operations for therapy to check your eyes. Acetaminophen/Tylenol (maximum 4000 mg per day) is safe to take with NSAIDs (ibuprofen/Motrin) for pain relief. return to the emergency department with any new or worsening symptoms. Patient Language: Indonesian Prescriptions: New ibuprofen 600 mg tablet 600 mg PO TID PRN (Reason: pain) Qty: 30 0RF acetaminophen 500 mg capsule 1,000 mg PO Q6H PRN (Reason: pain) Qty: 30 0RF No Action alogliptin 25 mg tablet See Rx Instructions .ROUTE .COMPLEX Rx Instructions: TAKE 1 TABLET PO ONCE DAILY TO LOWER BLOOD SUGAR; alprostadil 40 mcg kit See Rx Instructions .ROUTE .COMPLEX Rx Instructions: Inject 40mcg (1 cartridge) intracavity q week as needed prior to sexual activity (Max of 4 per month); amlodipine [Norvasc] 10 mg tablet See Rx Instructions .ROUTE .COMPLEX Rx Instructions: Take 1 tablet po once daily; bupropion HCl 150 mg tablet sustained-release 12 hr See Rx Instructions .ROUTE .COMPLEX Rx Instructions: Take 1 tablet po once daily, swallow whole. Do not crush or chew; carvedilol 6.25 mg tablet 6.25 mg PO Q12H Rx Instructions: must administer with a meal/food cholecalciferol (vitamin D3) 25 mcg (1,000 unit) tablet 25 mcg PO DAILY glucose 4 gram tablet,chewable See Rx Instructions .ROUTE .COMPLEX PRN Rx Instructions: CHEW AND SWALLOW 5 TABLETS PO PRN LOW BLOOD SUGAR. REPEAT DOSE IF HPOGLYCEMIA CONTINUES 15 MINUTES AFTER THE FIRST DOSE metformin 1,000 mg tablet 1,000 mg PO BID nicotine 21 mg/24 hr patch 24 hour See Rx Instructions .ROUTE .COMPLEX Rx Instructions: APPLY ONE PATCH TO THE SKIN SITE Q MORNING FOR SMOKING CESSATION. REMOVE OLD PATCH BEFORE APPLYING NEW ONE. ROTATE SITES. DO NOT SMOKE WHILE WEARING PATCH; rosuvastatin 40 mg tablet See Rx Instructions .ROUTE .COMPLEX Rx Instructions: TAKE 1/2 TABLET PO QAM TO LOWER CHOLESTEROL; sertraline 100 mg tablet 100 mg PO QAM sildenafil 50 mg tablet See Rx Instructions .ROUTE .COMPLEX Rx Instructions: TAKE 1 TABLET PO ONCE DAILY PRN FOR ERECTILE DYSFUNCTION (TAKE 60 MINUTES PRIOR TO SEXUAL ACTIVITY) (LIMIT 6 DOSES PER 30 DAYS) spironolactone 25 mg tablet 25 mg PO DAILY trazodone 100 mg tablet 100 mg PO QHS erythromycin 5 mg/gram (0.5 %) ointment See Rx Instructions .ROUTE .COMPLEX Rx Instructions: APPLY 1/2 INCH RIBBON TO RIGHT EYE TID; empagliflozin 25 mg tablet 25 mg PO DAILY omeprazole 20 mg capsule,delayed release(DR/EC) See Rx Instructions .ROUTE .COMPLEX Rx Instructions: TAKE 1 CAPSULE PO QAM BEFORE A MEAL TO LOWER STOMACH ACID (TAKE 30 MINUTES PRIOR TO FOOD); (DME) Accu-Chek Guide test strips Strip See Rx Instructions .ROUTE Rx Instructions: USE TO CHECK BLOOD SUGAR BID alcohol swabs [Alcohol Prep Pads] Pads, Medicated See Rx Instructions .ROUTE .COMPLEX Rx Instructions: USE/APPLY PAD TO THE AFFECTED AREA(S) EVERY WEEK FOR CLEANING AND DISINFECTING SKIN; meclizine 12.5 mg tablet 12.5 mg PO TID PRN (Reason: dizziness) Qty: 10 0RF Follow-up/Referrals: Randal Garcia MD [Primary Care Provider] - Time of Disposition: 03:52
--- NOTE | 2024-09-16 01:37 | PC.NURSE ---
RN pulled medications to medicate pt and pt is currently refusing iv or oral medications. Pt states I don't like to take medications.
[2024-09-16 02:09] LABS: Add Urine Microscopic? YES; Appearance Urine Clear (Clear); Bacteria Urine None Seen /hpf; Bilirubin Urine Negative (Negative); Blood Urine Negative (Negative); Color Urine Yellow (Yellow); Glucose Urine UA 3+ mg/dL (Negative); Ketones Urine Trace mg/dL (Negative); Leukocyte Esterase Ur Negative LEU/UL (Negative); Nitrate Urine Negative (Negative); Non Pathogenic Casts 0-2; Protein Urine Trace mg/dL (Negative); RBC Urine 0-2 /hpf (0-2); Specific Grav Ur 1.032 (1.001-1.035); Squamous Epithelial Cell Urine None Seen /hpf (Few); WBC Urine 0-5 /hpf (0-3); pH Urine 5.5 (5.0-9.0)
[2024-09-16 02:39] LABS: Influenza A QL RT-PCR Negative (Negative); Influenza B QL RT-PCR Negative (Negative); RSV RNA, RT-PCR Negative (Negative); SARS-CoV-2 RNA PCR Negative (Negative)
[2024-09-16 03:39] LABS: Amphetamine Screen Urine Negative (Negative); Barbiturate Screen Urine Negative (Negative); Benzodiazepines Screen Urine Negative (Negative); Cannabinoid Screen Urine Negative (Negative); Cocaine Screen Urine Negative (Negative); Methadone Screen Urine Negative (Negative); Opiate Screen Urine Negative (Negative); Phencyclidine Screen Urine Negative (Negative)
== END 2024-09-16 04:50 | disposition home or self-care (01) ==
PROVIDERS: Student in an Organized Health Care Education/Training Program; Emergency Provider Student in an Organized Health Care Education/Training Program; PCP Emergency Medicine
DX: R51.9 Headache, unspecified (principal); H53.8 Other visual disturbances; D64.9 Anemia, unspecified; E11.65 Type 2 diabetes mellitus with hyperglycemia; E78.5 Hyperlipidemia, unspecified; I10 Essential (primary) hypertension; F32.A Depression, unspecified; F17.210 Nicotine dependence, cigarettes, uncomplicated; Z20.822 Contact with and (suspected) exposure to COVID-19
CPT/HCPCS: 36415; 70450; 70496; 70498; 71045; 80053; 80307; 81001; 82948; 84484; 85025; 85610; 85730; 87637; 93005; 99284; Q9967

== ENCOUNTER 2024-09-17 11:36 | Inpatient (IN) | payer MEDICARE, OTHER, SELFPAY ==
[2024-09-17] VITALS (12 sets, daily range): BP systolic 143–172; BP diastolic 70–89; PULSE 66–99; RESP 12–19; TEMP 36.6–36.7; O2SAT 94–100; BMI 30.4
--- NOTE | ~2024-09-17 | CT_ITS ---
Noncontrast CT scan of the cervical spine Technique: Multiple contiguous axial [address] images of the cervical spine were obtained and rec onstructed in 2D sagittal and coronal planes on the acquisition scanner. Dose reduction technique was used on this scan by utilizing automated exposure control, adjustment of the mA and/or kV according to patient size. The dose-length product (DLP) was 498.57 mGy-cm. Clinical History: Pain Findings: No fractures or dislocations. There is mild reversal normal cervical lordosis. There is mi nimal degenerative disc narrowing at the lower cervical spine. No prevertebral soft tissue swelling. Impression: No fracture or subluxation of the cervical spine. Reviewed, dictated and finalized at location . FICIAL STONE APPLICATOR Impression: No fracture or subluxation of the cervical spine.
--- NOTE | ~2024-09-17 | CT_ITS ---
CT head without contrast Indication: Status post fall COMPARISON: 09/16/2024 Technique: Serial scans were obtained through the brain without the administration of contrast. Dose reduction technique was used on this scan by utilizing automated exposure control and iterative recon struction technique. The dose-length product (DLP) was 605.33 mGy-cm. Findings: There is no evidence of intracranial hemorrhage, mass lesion, or acute infarct. The ventri cles and subarachnoid spaces are dilated, consistent with mild to moderate atrophy. There is no evid ence of edema, mass effect or midline shift. The visualized paranasal sinuses and mastoid air cells are clear. Impression: No intracranial hemorrhage, mass, or acute infarct. Atrophic change, as above. Reviewed, dictated and finalized at location . REHAB Impression: No intracranial hemorrhage, mass, or acute infarct. Atrophic change, as above.
--- NOTE | ~2024-09-17 | MR_ITS ---
EXAMINATION: MR brain/brain stem wo/w con DATE: 09/18/2024 14:56 INDICATION: Encephalopathy. Headache. TECHNIQUE: Magnetic resonance imaging (MRI) of the brain and brainstem was performed without and with 20 mL MultiHance intravenous contrast. COMPARISON: Head CT 09/17/2024 FINDINGS: There is an acute infarct involving the left parietal-occipital region in the expected dist ribution of left middle cerebral artery. There are scattered areas of nonspecific increased T2-weight ed signal intensity in the cerebral white matter and santhosh, which is within normal limits for the francisco javier ent's age. There is no intracranial hemorrhage or abnormal mass lesion. The ventricles are normal in size. There is mild mucosal thickening in the paranasal sinuses. The orbits are normal. There are skylar ateral mastoid effusions. IMPRESSION: 1. 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 Reviewed, dictated and finalized at location A. EY BRAKEMAN
--- NOTE | ~2024-09-17 | XR_ITS ---
EXAMINATION: XR chest 1V portable DATE: 09/19/2024 07:01 INDICATION: Febrile. Altered mental status. TECHNIQUE: frontal view of the chest was obtained. COMPARISON: Chest radiograph and CT dated 09/17/2024 FINDINGS: The lungs remain clear with no focal airspace opacities, pulmonary edema, pleural effusion or pneumot horax. The cardiomediastinal silhouette is normal. IMPRESSION: 1. No acute cardiopulmonary disease. Reviewed, dictated and finalized at location A. TH AND SAFETY SPECIALIST
--- NOTE | ~2024-09-17 | CT_ITS ---
EXAMINATION: CTA chest abdomen pelvis DATE: 09/17/2024 15:31 INDICATION: Abdominal pain. TECHNIQUE: Computed tomographic angiography (CTA) of the chest, abdomen, and pelvis was performed wit h 100 mL Omnipaque-350 intravenous contrast. Automated exposure control and iterative reconstruction technique were employed. The dose-length product was 866.01 mGy-cm. Maximum intensity projection 3D-r econstructions of the aorta and other arteries were constructed by the technologist on a separate wor kstation. COMPARISON: None. FINDINGS: CHEST CTA: The lungs demonstrate mild atelectasis. No pleural effusion. The heart size is normal. No pericardial effusion. There is mild aortic atherosclerosis. No aneurysm or dissection. There is no pulmonary emb olus. There is severe thoracic spondylosis. ABDOMEN AND PELVIS CTA: The liver, gallbladder, spleen, pancreas, and adrenal glands are normal. There are cysts in the kidne ys measuring up to 15 mm on the left. The prostate is mildly enlarged. There are no dilated loops of bowel. The appendix is normal. There are no pathologically enlarged lymph nodes. There is no free int raperitoneal fluid. There is no significant stenosis of celiac axis, superior mesenteric artery, the renal arteries, or inferior mesenteric artery. There is mild lumbar spondylosis. IMPRESSION: 1. Mild aortic atherosclerosis. No aneurysm or dissection. Reviewed, dictated and finalized at location A. LED LABORER
--- NOTE | ~2024-09-17 | CT_ITS ---
EXAMINATION: CTA brain carotid DATE: 09/19/2024 18:11 INDICATION: altered mental status TECHNIQUE: Computed tomographic angiography (CTA) of the head was performed without and with 100 mL O mnipaque-350 intravenous contrast. CTA of the neck was performed with intravenous contrast. Automated exposure control and iterative reconstruction technique were employed. The dose-length product was 1 950.49 mGy-cm. Maximum intensity projection and volume rendered 3D-reconstructions were created by sandra cast technologist on a separate workstation. COMPARISON: 09/16/2024, 09/17/2024. FINDINGS: CT BRAIN: No acute large vessel infarct, intracranial hemorrhage, mass, or hydrocephalus. Mild atrophy. Mucosal thickening in the ethmoid and bilateral maxillary sinuses, poorly pneumatized bilateral mastoid air cells with fluid. CTA HEAD: No large vessel occlusion, aneurysm, high flow vascular malformation, nidus or extravasation. Mild at herosclerotic narrowing in the left M1 segment. Bilateral cavernous carotid atherosclerotic calcifica tions, with moderate short segment narrowing in the left cavernous carotid. Symmetric parenchymal enh ancement. Patent cerebral veins. CTA NECK: Aortic arch and proximal great vessels: Normal arch anatomy. Mild arch calcification. Right common carotid, carotid bifurcation, and internal carotid artery: No significant plaque.There i s 0% stenosis of the proximal right internal carotid artery relative to normal distal artery lumen di ameter (NASCET criteria). Left common carotid, carotid bifurcation, and internal carotid artery: No significant plaque.There is 0% stenosis of the proximal left internal carotid artery relative to normal distal artery lumen diam eter (NASCET criteria). Vertebral arteries: No significant plaque or stenosis. Other findings: Mild emphysematous change. IMPRESSION: No acute intracranial process. No large vessel intracranial occlusion, high-grade intracranial stenosis, or aneurysm. No carotid or vertebral artery occlusion, dissection, or significant stenosis. Reviewed, dictated and finalized at location K. ARTIST IMPRESSION: No acute intracranial process. No large vessel intracranial occlusion, high-grade intracranial stenosis, or an eurysm. No carotid or vertebral artery occlusion, dissection, or significant stenosis.
--- NOTE | ~2024-09-17 | CT_ITS ---
Non-contrast Head CT History: Declining mental status COMPARISON: 09/19/2024 Technique: Axial non-contrast imaging of the brain was performed. Dose reduction technique was used on this scan by utilizing automated exposure control and iterative reconstruction technique. The dose -length product (DLP) was 756.67 mGy-cm. Findings: There is no evidence of intracranial hemorrhage, mass lesion, or acute infarct. Brain par enchyma appears normal. The ventricles and subarachnoid spaces are normal in size. The calvarium ap pears normal. The visualized paranasal sinuses and mastoid air cells are clear. Impression: No significant abnormality seen. Reviewed, dictated and finalized at location . STICKER Impression: No significant abnormality seen.
--- NOTE | ~2024-09-17 | XR_ITS ---
EXAMINATION: XR chest 1V 09/17/2024 13:15 INDICATION: Altered mental status PROCEDURE: AP portable chest COMPARISON: 09/15/2024 FINDINGS: The lungs are clear. The cardiomediastinal silhouette is within normal limits. There are no pleural effusions. There is no pneumothorax suspected. IMPRESSION: 1: NO ACUTE CARDIOPULMONARY DISEASE. Reviewed, dictated and finalized at location B. E PROMOTION ANALYST
--- NOTE | ~2024-09-17 | XR_ITS ---
EXAMINATION: XR lumbar puncture diagnostic DATE: 09/17/2024 18:16 INDICATION: Altered mental status TECHNIQUE: The procedure including the risks and benefits was discussed with the patient. Risks discu ssed included spinal headache, cerebrospinal fluid leak, bleeding, and infection. The patient underst ood the risks and agreed to proceed. A timeout was performed to verify the patient's name, date of , and procedure to be performed. The skin overlying the L3-L4 level was prepped and draped in usual sterile fashion. Subcutaneous 1% lidocaine was used for local anesthesia. A 22 gauge spinal n eedle was advanced under fluoroscopic guidance. The needle was removed and the entry site was cleaned and dressed. There were no immediate complications. A total of 2 fluoroscopic image(s) were obtaine d. The amount of fluoroscopy time used during this procedure was 0.2 minutes. The patient was taken t o the nursing area for observation. FINDINGS: Real-time fluoroscopy demonstrates the needle at the L3-L4 level. Opening pressure was 20 c m water. (Normal range is variably defined as 6-20 cm water and up to 25 cm water in obese patients. Pressure >25 cm water is one of the modified Dandy criteria for idiopathic intracranial hypertension) . 14 mL of clear, colorless fluid was collected in 4 tubes. IMPRESSION: 1. Successful fluoro-guided lumbar puncture with normal opening pressure of 20 cm water. Reviewed, dictated and finalized at location A. AR PUMPER
--- NOTE | 2024-09-17 11:38 | ECG_ITS ---
Test Date: 2024-09-17 11:41:09 Measurements Intervals [place] Rate: 67 P: 34 CO: 146 QRS: 68 QRSD: 88 T: -64 QT: 389 QTc: 412 Interpretive Statements SINUS RHYTHM NONSPECIFIC T-WAVE ABNORMALITY Compared to ECG 09/15/2024 23:02:32 No significant changes Electronically Signed On 09-17-2024 16:12:26 STUDENT COUNSELLOR by Yair Soto
--- NOTE | 2024-09-17 11:40 | PC.NURSE ---
BS 261
--- NOTE | 2024-09-17 12:07 | ED_ITS ---
HPI - Fall General Chief Complaint: Fall Stated Complaint: GLF Time Seen by Provider: 09/17/24 12:01 Source: patient and RN notes reviewed Limitations: altered mental status History of Present Illness HPI Narrative: Patient presents after a ground level fall in which he struck his head while in the garage. He has been confused and this started a few days ago. It has been associated with a headache. Patient states I'm not coherent. He is able to answer some questions but struggles with others that he states this is not right...I should know this. He denies any unilateral symptoms or seizure. Denies loss of consciousness with the fall initially but then states that he does not remember the fall. Seen in the emergency department 2 days ago for altered mental status as well as blurred vision and headache. He states that the confusion has worsened last few days. A&O x1 by report. EMS administered lactated Ringer's and noted that his blood sugar was 230. Patient denies any recreational drugs. He notes that he drinks alcohol only occasionally. Related Data Home Medications ?Medication ?Instructions ?Recorded ?Confirmed ?Last Taken ?Type alcohol swabs (Alcohol Prep Pads) See Rx Instructions .Route .COMPLEX 02/20/22 09/18/24 Unknown History amlodipine 10 mg tablet (Norvasc) See Rx Instructions .Route .COMPLEX 02/20/22 09/18/24 09/15/24 History blood sugar diagnostic (Accu-Chek 02/20/22 09/18/24 Unknown History Guide test strips) bupropion HCl 150 mg tablet,12 hr See Rx Instructions .Route .COMPLEX 02/20/22 09/18/24 Unknown History sustained-release carvedilol 6.25 mg tablet 6.25 mg PO Q12H 02/20/22 09/18/24 Unknown History cholecalciferol (vitamin D3) 25 25 mcg PO DAILY 02/20/22 09/18/24 Unknown History mcg (1,000 unit) tablet glucose 4 gram chewable tablet See Rx Instructions .Route 02/20/22 09/18/24 Unknown History .COMPLEX PRN hypoglycemia metformin 1,000 mg tablet 1,000 mg PO BID 02/20/22 09/18/24 09/15/24 History omeprazole 20 mg capsule,delayed See Rx Instructions .Route .COMPLEX 02/20/22 09/18/24 Unknown History release sertraline 100 mg tablet 100 mg PO QAM 02/20/22 09/18/24 Unknown History sildenafil 50 mg tablet See Rx Instructions .Route .COMPLEX 02/20/22 09/18/24 Unknown History spironolactone 25 mg tablet 12.5 mg PO DAILY 02/20/22 09/18/24 Unknown History trazodone 100 mg tablet See Rx Instructions PO QHS 02/20/22 09/18/24 Unknown History carvedilol 12.5 mg tablet (Coreg) 12.5 mg PO BID 09/18/24 09/18/24 Unknown History cetirizine 10 mg tablet (24Hour 10 mg PO DAILY PRN allergy symptoms 09/18/24 09/18/24 Unknown History Allergy) ezetimibe 10 mg tablet 10 mg PO ONCE 09/18/24 09/18/24 Unknown History varenicline 1 mg tablet (Chantix) 1 mg PO BID 09/18/24 09/18/24 Unknown History Allergies Allergy/AdvReac Type Severity Reaction Status Date / Time No Known Allergies Allergy Mild Verified 09/15/24 23:00 [facility] Past Medical History Medical History Depression HLD (hyperlipidemia) HTN (hypertension) Diabetes mellitus non insulin dependent Family History Family History Father , 72 Cancer Mother , 80 Diabetes mellitus Social History Social History (Updated 09/18/24 @ 08:34 by Liat Loyd MD) Social History: Patient does not drink caffeine. Receives care through the [facility] Smoking packs per day: 0.5 Smoking cigarettes per day: 10.0 Years smoked: 40 Smoking pack-years: 20.00 Smoking status: Current every day smoker Tobacco type: cigarettes Second hand tobacco smoke exposure: Yes Alcohol intake: current Drinks per week: 21 Alcohol use details: Patient drinks 3 shots daily Substance use: never Substance use type: does not use Do You Feel Safe in your Home?: Yes Lack of Transportation: No Lack of Food: Never True Current Housing: I Have Housing Concerned About Future Housing: No Difficulty Paying Gas/Electric Bills: No Difficulty Paying for Meds: No Currently Unemployed: No Education: Don't Know Difficulty w/ Childcare or Family Care: No Living arrangements: with family Occupation/Education: retired Gender identity (if verbalized by the patient): Male Sexual Orientation (if Verbalized by the Patient): Straight or Heterosexual Spiritual care concerns: No Exam 2 Narrative: GENERAL: Well-appearing, well-nourished, and in no acute distress. HEAD: Normocephalic, atraumatic. Scar at back of head. EYES: Non injected, non icteric ENT: Nares clear, no rhinorrhea or epistaxis. NECK: Supple. CHEST: Speaking in full sentences. No respiratory distress. HEART: Regular rate and rhythm. . ABDOMEN: Protuberant but Soft, nondistended. EXTREMITIES: Normal range of motion. No lower extremity edema. SKIN: Warm, dry. Superficial laceration right superiorlateral aspect near right eyebrow; no active bleeding NEURO: No focal deficits. Alert and oriented to self and some aspects of health history but otherwise becomes confused but other details. Unable to perform addition exercises or serial sevens with subtraction. Unable to spell WORLD backwards. Unknown date. PSYCH: Normal mood and affect. Course Vital Signs Vital signs: Vital Signs Temperature 98.0 F 09/17/24 11:28 Pulse Rate 67 09/17/24 11:28 Respiratory Rate 17 09/17/24 11:28 Blood Pressure 163/83 H 09/17/24 11:28 Pulse Oximetry 100 09/17/24 11:28 Oxygen Delivery Room Air 09/17/24 11:28 Temperature 97.9 F 09/18/24 03:37 Pulse Rate 108 H 09/18/24 06:00 Respiratory Rate 16 09/18/24 03:37 Blood Pressure 169/90 H 09/18/24 03:37 Pulse Oximetry 93 09/18/24 04:00 Oxygen Delivery Room Air 09/17/24 11:28 Oxygen Flow Rate 2 09/18/24 04:00 MDM - Fall MDM Narrative Medical decision making narrative: Patient presents after ground level fall which he struck his head. Patient is confused. Patient presented 2 days ago some confusion as well as report of a headache and blurred vision. At that time he had stated that his confusion had occurred while he was driving his daughter to school. Otherwise, he seemed appropriate and able to engage in assessment. He had declined medications for his headache and had been discharged with a presumed diagnosis of diabetic retinopathy based on some of his other symptoms. In the emergency department he is afebrile with vital signs notable for hypertension. Hyperglycemia without anion gap or acidosis. Patient is alert and oriented to himself today but is encephalopathic, only intermittently able to answer some questions although he does seem to recognize that for several of these things he used to should know the answer and this causes him some distress. CT non contrast unremarkable. Patient is now complaining of severe abdominal pain and is crying. His abdomen is intermittently rigid as he tenses up in pain and then the pain in his abdomen and has had will subside and he will be fine and stating he does not need any pain medicine because he is no longer in pain. Differential given neuro symptoms now extends to aortic dissection and porphyria as well as intestinal ischemia. Patient given analgesics medication follow-up by Naomi. Patient's tells RN that he had a brain tumor resected. In further conversation, it appeared to have been a tumor near his ear but they did have to enter his skull for this. That was approximately 1 year and he did go to his follow-up appointment 2 weeks afterwards and was told things were fine. This was performed through the [facility]. He undergoes LP with radiology. Patient will require admission to IMU. Discussed with Veronica VARGAS ; admission will go under Dr Donaldson, production aide hospitalist. Dr Ruffin recommends both MRI (already ordered) and EEG (order put it). Suggests this might represent PRES (posterior reversible encephalopathy syndrome). Confirmed a CTA had been obtained during his most recent presentation (09/16/24) and was negative; no need to repeat. Reviewed protein and cell count from CSF. LP does not suggest infectious etiology. Patient pending bed in the IMU. Seizure precautions were in place when it was noted that patient was seizing. I did present to bedside and patient was observed having generalized tonic-clonic movements. This did abort prior to him receiving a benzodiazepine and he was slightly postictal but otherwise regained consciousness relatively quickly afterwards. Gaze deviation. Critical Care: 1 or more vital organ systems impaired with a high probability of imminent or life-threatening deterioration in the patient's condition requiring frequent personal assessment and manipulation of the patient's condition. This included time spent evaluating the patient, speaking with patient, reviewing/interpreting laboratory/imaging studies, discussing the case with consultants or admitting teams, retrieving data and reviewing charts, monitoring for decompensation, documenting the visit, and performing bundled procedures exclusive of separately billed procedures. Differential Diagnosis Differential diagnosis: Likely other (Meningitis, intracranial hemorrhage, brain tumor, hypoglycemia severe migraine, stroke, joint cell arteritis subdural hematoma, idiopathic intracranial hypertension carbon monoxide poisoning; hypertensive crisis (though would typically anticipate higher BP to cause this)) Medical Records Attestation: I reviewed the patient's medical records. Medical records narrative: Reviewed ED visit earlier in the week Lab Data Attestation: I reviewed the patient's lab results. 09/17/24 13:20 09/17/24 13:20 Labs: Lab Results 09/17/24 09/17/24 09/17/24 Range/Units 11:39 12:55 13:19 WBC (4.5-10.0) K/mm3 RBC (4.6-6.20) M/mm3 Hgb (14.0-18.0) g/dL Hct (42.0-52.0) % MCV (80-100) fl MCH (26-34) pg MCHC (32-36) g/dl RDW (11.5-14.5) % Plt Count (150-375) k/mm3 MPV (7.4-10.4) fl Immature Gran % (Auto) (0-0.5) % Neut % (Auto) (45.5-73.1) % Lymph % (Auto) (18.3-44.2) % [place] % (Auto) (2.6-8.5) % Eos % (Auto) (0-4.4) % Baso % (Auto) (0.2-1.2) % Lymph # (Auto) (0.9-3.2) K/mm3 [place] # (Auto) (0.1-0.6) K/mm3 Eos # (Auto) (0-0.3) K/mm3 Baso # (Auto) (0.0-0.1) K/mm3 Abs Immat Gran (auto) (0.00-0.031) K/mm3 Absolute Neuts (auto) (1.3-6.7) K/mm3 Absolute Nucleated RBC (0.0-0.012) K/mm3 Nucleated RBC % (0.0-0.2) % PT 13.9 (11.1-14.7) Seconds INR 1.0 APTT 25.3 (22.3-36.8) Seconds Methemoglobin (0-1.5) %THb Sodium (137-145) mmol/L Potassium (3.4-5.0) mmol/L Chloride (98-107) mmol/L Carbon Dioxide (22-30) mmol/L Anion Gap (4-12) mmol/L BUN (9-20) mg/dL Creatinine (0.7-1.3) mg/dL Estim Creat Clear Calc ml/min Estimated GFR (59 - ) Glucose (65-110) mg/dL POC Capillary Glucose 261 H (65-105) mg/dl Hemoglobin A1c 9.1 H (<5.7) % Lactic Acid (0.7-2.0) mmol/L Calcium (8.4-10.2) mg/dL Total Bilirubin (0.2-1.3) mg/dL AST (17-59) U/L ALT (6-50) U/L Alkaline Phosphatase (38-126) U/L Ammonia (9-30) umol/L Total Creatine Kinase (55-170) U/L Troponin I < 0.012 (0.000-0.034) ng/mL Total Protein (6.3-8.2) g/dL Albumin (3.5-5.1) g/dL TSH (0.465-4.680) uIU/mL Fluid EBV Source CSF Source CSF Appearance (Clear) CSF Color (Colorless) CSF RBC (0-2) CSF Tot Nucleated Cells (0-5) /uL CSF Lymphocytes (40-80) % CSF Monocytes (15-45) % CSF Glucose (40-70) mg/dL CSF Lactic Acid CSF Total Protein (12-60) mg/dL CSF Albumin (MS) CSF IgG Oligo Bnd (MS) CSF IgG (MS) Serum IgG (MS) CSF IgG Index (MS) CSF IgG Synth Rate MS CSF Myelin Bsc Prot MS CSF VDRL CSF Lyme IgG Antibody CSF Lyme IgG (Immblot) CSF Lyme IgM Antibody CSF Lyme IgM (Immblot) CSF Cryptococcus Interp CSF EBV DNA (PCR) CSF Herpes I DNA (PCR) CSF Herpes II DNA (PCR) CSF West Nile RNA Salicylates (2-20) mg/dL Acetaminophen (10-30) ug/mL Ethyl Alcohol (<10) mg/dL Lyme IgG Bands Present Lyme IgG 18 kDa Band Lyme IgG 23 kDa Band Lyme IgG 28 kDa Band Lyme IgG 30 kDa Band Lyme IgG 39 kDa Band Lyme IgG 41 kDa Band Lyme IgG 45 kDa Band Lyme IgG 58 kDa Band Lyme IgG 66 kDa Band Lyme IgG 93 kDa Band Lyme IgG Ab (Immblot) Lyme IgM Ab (Immblot) Lyme IgM Bands Present Lyme IgM 23 kDa Band Lyme IgM 39 kDa Band Lyme IgM 41 kDa Band Coccidioides IgG (ID) Coccidioides IgM (ID) Cryptococcus Source Cryptococcus Ag CMV DNA Quant PCR CMV DNA Qnt Source CMV Qnt PCR log IU/mL West Nile Virus IgM Ab Herpes Virus Source Herpes Simplex Culture HSV (PCR) Source Polyoma Virus DNA LUKE Virus Spec Source VZV IgG Antibody VZV IgM Antibody 09/17/24 09/17/24 09/17/24 Range/Units 13:20 13:55 17:10 WBC 6.9 (4.5-10.0) K/mm3 RBC 4.35 L (4.6-6.20) M/mm3 Hgb 14.2 (14.0-18.0) g/dL Hct 40.8 L (42.0-52.0) % MCV 93.8 (80-100) fl MCH 32.6 (26-34) pg MCHC 34.8 (32-36) g/dl RDW 11.8 (11.5-14.5) % Plt Count 272 (150-375) k/mm3 MPV 9.3 (7.4-10.4) fl Immature Gran % (Auto) 0.3 (0-0.5) % Neut % (Auto) 56.5 (45.5-73.1) % Lymph % (Auto) 34.2 (18.3-44.2) % [place] % (Auto) 7.2 (2.6-8.5) % Eos % (Auto) 1.4 (0-4.4) % Baso % (Auto) 0.4 (0.2-1.2) % Lymph # (Auto) 2.36 (0.9-3.2) K/mm3 [place] # (Auto) 0.5 (0.1-0.6) K/mm3 Eos # (Auto) 0.1 (0-0.3) K/mm3 Baso # (Auto) 0.0 (0.0-0.1) K/mm3 Abs Immat Gran (auto) 0.02 (0.00-0.031) K/mm3 Absolute Neuts (auto) 3.9 (1.3-6.7) K/mm3 Absolute Nucleated RBC 0.000 (0.0-0.012) K/mm3 Nucleated RBC % 0.0 (0.0-0.2) % PT (11.1-14.7) Seconds INR APTT (22.3-36.8) Seconds Methemoglobin 0.2 (0-1.5) %THb Sodium 137 (137-145) mmol/L Potassium 4.2 (3.4-5.0) mmol/L Chloride 106 (98-107) mmol/L Carbon Dioxide 26 (22-30) mmol/L Anion Gap 5 (4-12) mmol/L BUN 13 (9-20) mg/dL Creatinine 1.10 (0.7-1.3) mg/dL Estim Creat Clear Calc 69 ml/min Estimated GFR > 60 (59 - ) Glucose 246 H (65-110) mg/dL POC Capillary Glucose (65-105) mg/dl Hemoglobin A1c (<5.7) % Lactic Acid 1.4 (0.7-2.0) mmol/L Calcium 9.4 (8.4-10.2) mg/dL Total Bilirubin 0.8 (0.2-1.3) mg/dL AST 19 (17-59) U/L ALT 14 (6-50) U/L Alkaline Phosphatase 81 (38-126) U/L Ammonia < 9 L (9-30) umol/L Total Creatine Kinase 114 (55-170) U/L Troponin I < 0.012 (0.000-0.034) ng/mL Total Protein 8.0 (6.3-8.2) g/dL Albumin 4.3 Pending (3.5-5.1) g/dL TSH 3.070 (0.465-4.680) uIU/mL Fluid EBV Source Pending CSF Source Csf CSF Appearance (Clear) CSF Color (Colorless) CSF RBC (0-2) CSF Tot Nucleated Cells (0-5) /uL CSF Lymphocytes (40-80) % CSF Monocytes (15-45) % CSF Glucose (40-70) mg/dL CSF Lactic Acid CSF Total Protein (12-60) mg/dL CSF Albumin (MS) CSF IgG Oligo Bnd (MS) CSF IgG (MS) Serum IgG (MS) CSF IgG Index (MS) CSF IgG Synth Rate MS CSF Myelin Bsc Prot MS CSF VDRL CSF Lyme IgG Antibody CSF Lyme IgG (Immblot) CSF Lyme IgM Antibody CSF Lyme IgM (Immblot) CSF Cryptococcus Interp CSF EBV DNA (PCR) CSF Herpes I DNA (PCR) CSF Herpes II DNA (PCR) CSF West Nile RNA Salicylates < 1.0 L (2-20) mg/dL Acetaminophen < 10 L (10-30) ug/mL Ethyl Alcohol < 10 (<10) mg/dL Lyme IgG Bands Present Lyme IgG 18 kDa Band Lyme IgG 23 kDa Band Lyme IgG 28 kDa Band Lyme IgG 30 kDa Band Lyme IgG 39 kDa Band Lyme IgG 41 kDa Band Lyme IgG 45 kDa Band Lyme IgG 58 kDa Band Lyme IgG 66 kDa Band Lyme IgG 93 kDa Band Lyme IgG Ab (Immblot) Lyme IgM Ab (Immblot) Lyme IgM Bands Present Lyme IgM 23 kDa Band Lyme IgM 39 kDa Band Lyme IgM 41 kDa Band Coccidioides IgG (ID) Coccidioides IgM (ID) Cryptococcus Source Cryptococcus Ag CMV DNA Quant PCR CMV DNA Qnt Source CMV Qnt PCR log IU/mL West Nile Virus IgM Ab Herpes Virus Source Herpes Simplex Culture HSV (PCR) Source Polyoma Virus DNA LUKE Virus Spec Source VZV IgG Antibody VZV IgM Antibody 09/17/24 09/17/24 Range/Units 17:10 19:24 WBC (4.5-10.0) K/mm3 RBC (4.6-6.20) M/mm3 Hgb (14.0-18.0) g/dL Hct (42.0-52.0) % MCV (80-100) fl MCH (26-34) pg MCHC (32-36) g/dl RDW (11.5-14.5) % Plt Count (150-375) k/mm3 MPV (7.4-10.4) fl Immature Gran % (Auto) (0-0.5) % Neut % (Auto) (45.5-73.1) % Lymph % (Auto) (18.3-44.2) % [place] % (Auto) (2.6-8.5) % Eos % (Auto) (0-4.4) % Baso % (Auto) (0.2-1.2) % Lymph # (Auto) (0.9-3.2) K/mm3 [place] # (Auto) (0.1-0.6) K/mm3 Eos # (Auto) (0-0.3) K/mm3 Baso # (Auto) (0.0-0.1) K/mm3 Abs Immat Gran (auto) (0.00-0.031) K/mm3 Absolute Neuts (auto) (1.3-6.7) K/mm3 Absolute Nucleated RBC (0.0-0.012) K/mm3 Nucleated RBC % (0.0-0.2) % PT (11.1-14.7) Seconds INR APTT (22.3-36.8) Seconds Methemoglobin (0-1.5) %THb Sodium (137-145) mmol/L Potassium (3.4-5.0) mmol/L Chloride (98-107) mmol/L Carbon Dioxide (22-30) mmol/L Anion Gap (4-12) mmol/L BUN (9-20) mg/dL Creatinine (0.7-1.3) mg/dL Estim Creat Clear Calc ml/min Estimated GFR (59 - ) Glucose (65-110) mg/dL POC Capillary Glucose (65-105) mg/dl Hemoglobin A1c (<5.7) % Lactic Acid (0.7-2.0) mmol/L Calcium (8.4-10.2) mg/dL Total Bilirubin (0.2-1.3) mg/dL AST (17-59) U/L ALT (6-50) U/L Alkaline Phosphatase (38-126) U/L Ammonia (9-30) umol/L Total Creatine Kinase (55-170) U/L Troponin I (0.000-0.034) ng/mL Total Protein (6.3-8.2) g/dL Albumin (3.5-5.1) g/dL TSH (0.465-4.680) uIU/mL Fluid EBV Source CSF Source Pending CSF Appearance Clear (Clear) CSF Color Colorless (Colorless) CSF RBC 26 H (0-2) CSF Tot Nucleated Cells 0 (0-5) /uL CSF Lymphocytes 15 L (40-80) % CSF Monocytes 1 L (15-45) % CSF Glucose 128 H (40-70) mg/dL CSF Lactic Acid Pending CSF Total Protein 38 (12-60) mg/dL CSF Albumin (MS) Pending CSF IgG Oligo Bnd (MS) Pending CSF IgG (MS) Pending Serum IgG (MS) Pending CSF IgG Index (MS) Pending CSF IgG Synth Rate MS Pending CSF Myelin Bsc Prot MS Pending CSF VDRL Pending CSF Lyme IgG Antibody Pending CSF Lyme IgG (Immblot) Pending CSF Lyme IgM Antibody Pending CSF Lyme IgM (Immblot) Pending CSF Cryptococcus Interp Pending CSF EBV DNA (PCR) Pending CSF Herpes I DNA (PCR) Pending CSF Herpes II DNA (PCR) Pending CSF West Nile RNA Pending Salicylates (2-20) mg/dL Acetaminophen (10-30) ug/mL Ethyl Alcohol (<10) mg/dL Lyme IgG Bands Present Pending Lyme IgG 18 kDa Band Pending Lyme IgG 23 kDa Band Pending Lyme IgG 28 kDa Band Pending Lyme IgG 30 kDa Band Pending Lyme IgG 39 kDa Band Pending Lyme IgG 41 kDa Band Pending Lyme IgG 45 kDa Band Pending Lyme IgG 58 kDa Band Pending Lyme IgG 66 kDa Band Pending Lyme IgG 93 kDa Band Pending Lyme IgG Ab (Immblot) Pending Lyme IgM Ab (Immblot) Pending Lyme IgM Bands Present Pending Lyme IgM 23 kDa Band Pending Lyme IgM 39 kDa Band Pending Lyme IgM 41 kDa Band Pending Coccidioides IgG (ID) Pending Coccidioides IgM (ID) Pending Cryptococcus Source Pending Cryptococcus Ag Pending CMV DNA Quant PCR Pending CMV DNA Qnt Source Pending CMV Qnt PCR log IU/mL Pending West Nile Virus IgM Ab Pending Herpes Virus Source Pending Herpes Simplex Culture Pending HSV (PCR) Source Pending Polyoma Virus DNA Pending LUKE Virus Spec Source Pending VZV IgG Antibody Pending VZV IgM Antibody Pending ABG Data ABG results: 09/17/24 13:55 Puncture Site Left radial ABG pH 7.453 H ABG pCO2 34.5 L ABG pO2 79.3 L ABG PO2/FiO2 Ratio 3.78 ABG HCO3 23.6 ABG O2 Saturation 96.3 ABG O2 Content 20.1 ABG Base Excess 0.3 A-a Gradient 29.1 Oxyhemoglobin 94.4 Carboxyhemoglobin 1.7 Reduced Hemoglobin 3.7 Total Hemoglobin 15.1 O2 Delivery Device Room air O2 Liters/Min Not Reportable FiO2 21 Attestation: I personally reviewed and interpreted this ABG as follows: Interpretation: Appropriate compensation; carboxyhemoglobin 1.7% (normal) Imaging Data Radiologist's impression: Impressions Chest X-Ray 09/17/24 13:26 IMPRESSION: 1: NO ACUTE CARDIOPULMONARY DISEASE. Head CT 09/17/24 13:40 Impression: No intracranial hemorrhage, mass, or acute infarct. Atrophic change, as above. Cervical Spine CT 09/17/24 13:47 Impression: No fracture or subluxation of the cervical spine. ECG Data EKG #1: Attestation: I personally reviewed and interpreted this ECG as follows: ECG completion date: 09/17/24 ECG completion time: 11:41 Prior ECG tracings: available for review (earlier this week) Interpretation: Normal sinus rhythm at a rate of 67 beats per minute. MO interval 146. QRS 88. QT/QTC 389/404. Good R-wave progression across the precordial leads. T-wave inversions throughout the inferior leads 2, 3, and AVF. T-wave inversions/biphasic T-wave in V5 V6. EKG of turned 2 days ago showed seen finding V5 and V6 however the findings in the inferior leads are new today. Critical Care Time Critical Care Time Critical Care Time: Yes Total Critical Care Time: 75 Discharge Plan Discharge Clinical Impression: Encephalopathy, Hyperglycemia, Blurred vision, Aortic atherosclerosis Patient Disposition: Still a Patient Condition: Serious
[2024-09-17 13:29] LABS: Basophils Percent Auto 0.4 % (0.2-1.2); Eosinophils Absolute Auto 0.1 K/mm3 (0-0.3); Eosinophils Percent Auto 1.4 % (0-4.4); Hematocrit 40.8 % (42.0-52.0); Hemoglobin 14.2 g/dL (14.0-18.0); Immature Granulocyte Absolute 0.02 K/mm3 (0.00-0.031); Immature Granulocyte Percent A 0.3 % (0-0.5); Lymphocytes Absolute Auto 2.36 K/mm3 (0.9-3.2); Lymphocytes Percent Auto 34.2 % (18.3-44.2); Mean Corpuscular HGB Conc 34.8 g/dl (32-36); Mean Corpuscular Hemoglobin 32.6 pg (26-34); Mean Corpuscular Volume 93.8 fl (80-100); Mean Platelet Volume 9.3 fl (7.4-10.4); Monocytes Absolute Auto 0.5 K/mm3 (0.1-0.6); Monocytes Percent Auto 7.2 % (2.6-8.5); Neutrophils Absolute Auto 3.9 K/mm3 (1.3-6.7); Neutrophils Percent Auto 56.5 % (45.5-73.1); Platelet Count Result 272 k/mm3 (150-375); Red Blood Count 4.35 M/mm3 (4.6-6.20); Red Cell Distribution Width 11.8 % (11.5-14.5); White Blood Count 6.9 K/mm3 (4.5-10.0)
[2024-09-17 13:41] LABS: Lactic Acid Reflex 1.4 mmol/L (0.7-2.0)
[2024-09-17 13:42] LABS: Alanine Aminotransferase 14 U/L (6-50); Albumin Level 4.3 g/dL (3.5-5.1); Alkaline Phosphatase 81 U/L (38-126); Anion Gap 5 mmol/L (4-12); Aspartate Amino Transferase 19 U/L (17-59); Bilirubin,Total 0.8 mg/dL (0.2-1.3); Blood Urea Nitrogen 13 mg/dL (9-20); Calcium 9.4 mg/dL (8.4-10.2); Carbon Dioxide 26 mmol/L (22-30); Chloride 106 mmol/L (98-107); Creatine Kinase 114 U/L (55-170); Estimated CRCL calculation 69 ml/min; Estimated Glomerular Filt Rate > 60; Glucose 246 mg/dL (65-110); Potassium 4.2 mmol/L (3.4-5.0); Sodium 137 mmol/L (137-145)
[2024-09-17 13:43] LABS: Acetaminophen < 10 ug/mL (10-30); Ammonia < 9 umol/L (9-30); Ethanol < 10 mg/dL (<10); Salicylate < 1.0 mg/dL (2-20)
[2024-09-17 13:54] LABS: Troponin I < 0.012 ng/mL (0.000-0.034)
[2024-09-17 14:03] LABS: Alveolar/Arterial O2 Gradient 29.1 mmHg; Base Excess ABG 0.3 mEq/l (+/-2.0); Carboxyhemoglobin 1.7 % THb (0-2.0); Fractional Inspired Oxygen 21 %; HCO3 ABG 23.6 mEq/l (22.0-26.0); Methemoglobin ABG 0.2 %THb (0-1.5); Oxygen Content ABG 20.1 %vol (16.0-22.0); Oxygen Saturation ABG 96.3 % (95.0-100.0); Oxyhemoglobin 94.4 % THb (90.0-100.0); PCO2 ABG 34.5 mmHg (35.0-45.0); PO2 ABG 79.3 mmHg (80.0-100.0); PO2 FiO2 Ratio Arterial Blood 3.78 %; Reduced Hemoglobin 3.7 %THb (0-5.0); Total Hemoglobin 15.1 g/dL (12.0-18.0); pH ABG 7.453 (7.350-7.450)
[2024-09-17 14:05] LABS: Device ROOM AIR; Site Drawn LEFT RADIAL
[2024-09-17 14:19] LABS: Troponin I < 0.012 ng/mL (0.000-0.034)
--- NOTE | 2024-09-17 14:37 | PC.NURSE ---
This RN spoke to and discussed pt POC, requesting updates be called to her, Larry [phone]
[2024-09-17 14:40] LABS: Hemoglobin A1C 9.1 % (<5.7)
[2024-09-17 14:40] LABS: Glucose Point of Care 261 mg/dl (65-105)
[2024-09-17 14:51] LABS: Prothrombin Time 13.9 Seconds (11.1-14.7)
[2024-09-17 14:52] LABS: Partial Thromboplastin Time 25.3 Seconds (22.3-36.8)
[2024-09-17] MEDS: MORPHINE SULFATE (*CRX) 4 MG/ML INJ IV PUSH (14:55)
[2024-09-17] MEDS: KETOROLAC 15 MG/ML VIAL (*BKC) IV PUSH (15:32)
[2024-09-17] MEDS: HYDROmorphone HCL INJ (*CRX) 1 MG/ML SYR IV PUSH (15:32)
[2024-09-17] MEDS: diazePAM INJ (*CRX) 10 MG/2 ML SYRINGE 5 MG IV PUSH (16:43)
[2024-09-17 18:32] LABS: Glucose CSF 128 mg/dL (40-70); Total Protein CSF 38 mg/dL (12-60)
[2024-09-17 18:56] LABS: Appearance CSF Clear (Clear); CSF source CSF; Color CSF Colorless (Colorless)
[2024-09-17 19:16] LABS: Nucleated Cell CSF 0 /uL (0-5)
[2024-09-17 19:17] LABS: Red Blood Cell CSF 26 (0-2)
[2024-09-17 19:25] LABS: Lymphocytes CSF 15 % (40-80); Monocytes CSF 1 % (15-45)
--- NOTE | 2024-09-17 21:08 | P.HP_ITS ---
H&P: HPI History of Present Illness Date/Time: 09/17/24 21:08 Chief Complaint: altered mental status Narrative: This is a 63-year-old with past medical history significant for type diabetes mellitus, GERD, depression, hypertension, Tobacco dependence. Patient presents to the emergency room for a 2nd time after he was seen and evaluated on initial visit patient's complaint was a blurry vision and headache however after extensive workup which was non gel then patient was discharged home to return today complaining of having a fall while in the emergency room patient developed abdominal pain and had episode of seizure disorder with tonic clonic movement of right hemibody with generally sedation to whole body however patient retained consciousness throughout this episode. Preliminary workup has been essentially nonrevealing. Patient has been admitted for further evaluation management and treatment. EXAMINATION: CTA chest abdomen pelvis DATE: 09/17/2024 15:31 INDICATION: Abdominal pain. TECHNIQUE: Computed tomographic angiography (CTA) of the chest, abdomen, and pelvis was performed with 100 mL Omnipaque-350 intravenous contrast. Automated exposure control and iterative reconstruction technique were employed. The dose- length product was 866.01 mGy-cm. Maximum intensity projection 3D- reconstructions of the aorta and other arteries were constructed by the technologist on a separate workstation. COMPARISON: None. FINDINGS: CHEST CTA: The lungs demonstrate mild atelectasis. No pleural effusion. The heart size is normal. No pericardial effusion. There is mild aortic atherosclerosis. No aneurysm or dissection. There is no pulmonary embolus. There is severe thoracic spondylosis. ABDOMEN AND PELVIS CTA: The liver, gallbladder, spleen, pancreas, and adrenal glands are normal. There are cysts in the kidneys measuring up to 15 mm on the left. The prostate is mildly enlarged. There are no dilated loops of bowel. The appendix is normal. There are no pathologically enlarged lymph nodes. There is no free intraperitoneal fluid. There is no significant stenosis of celiac axis, superior mesenteric artery, the renal arteries, or inferior mesenteric artery. There is mild lumbar spondylosis. IMPRESSION: 1. Mild aortic atherosclerosis. No aneurysm or dissection. CT head without contrast Indication: Status post fall COMPARISON: 09/16/2024 Technique: Serial scans were obtained through the brain without the administration of contrast. Dose reduction technique was used on this scan by utilizing automated exposure control and iterative reconstruction technique. The dose-length product (DLP) was 605.33 mGy-cm. Findings: There is no evidence of intracranial hemorrhage, mass lesion, or acute infarct. The ventricles and subarachnoid spaces are dilated, consistent with mild to moderate atrophy. There is no evidence of edema, mass effect or midline shift. The visualized paranasal sinuses and mastoid air cells are clear. Impression: No intracranial hemorrhage, mass, or acute infarct. Atrophic change, as above. EXAMINATION: XR chest 1V 09/17/2024 13:15 INDICATION: Altered mental status PROCEDURE: AP portable chest COMPARISON: 09/15/2024 FINDINGS: The lungs are clear. The cardiomediastinal silhouette is within normal limits. There are no pleural effusions. There is no pneumothorax suspected. IMPRESSION: 1: NO ACUTE CARDIOPULMONARY DISEASE. Review of Systems Review of Systems: ROS unobtainable: Yes unobtainable due to mental status ( obtundation lethargy) PMF Past Medical History Medical History Depression HLD (hyperlipidemia) HTN (hypertension) Diabetes mellitus non insulin dependent Family History Family History Father , 72 Cancer Mother , 80 Diabetes mellitus Social History Social History Social History: Patient does not drink caffeine. Smoking packs per day: 0.5 Smoking cigarettes per day: 10.0 Years smoked: 40 Smoking pack-years: 20.00 Smoking status: Current every day smoker Tobacco type: cigarettes Second hand tobacco smoke exposure: Yes Alcohol intake: current Drinks per week: 21 Alcohol use details: Patient drinks 3 shots daily Substance use: never Substance use type: does not use Do You Feel Safe in your Home?: Yes Lack of Transportation: No Lack of Food: Never True Current Housing: I Have Housing Concerned About Future Housing: No Difficulty Paying Gas/Electric Bills: No Difficulty Paying for Meds: No Currently Unemployed: No Education: Don't Know Difficulty w/ Childcare or Family Care: No Living arrangements: alone Occupation/Education: retired Gender identity (if verbalized by the patient): Male Sexual Orientation (if Verbalized by the Patient): Straight or Heterosexual Spiritual care concerns: No Meds Home Medications and Allergies Home Medications ?Medication ?Instructions ?Recorded ?Confirmed ?Type alcohol swabs (Alcohol Prep Pads) See Rx Instructions .Route .COMPLEX 02/20/22 09/18/24 History amlodipine 10 mg tablet (Norvasc) See Rx Instructions .Route .COMPLEX 02/20/22 09/18/24 History blood sugar diagnostic (Accu-Chek 02/20/22 09/18/24 History Guide test strips) bupropion HCl 150 mg tablet,12 hr See Rx Instructions .Route .COMPLEX 02/20/22 09/18/24 History sustained-release carvedilol 6.25 mg tablet 6.25 mg PO Q12H 02/20/22 09/18/24 History cholecalciferol (vitamin D3) 25 25 mcg PO DAILY 02/20/22 09/18/24 History mcg (1,000 unit) tablet glucose 4 gram chewable tablet See Rx Instructions .Route 02/20/22 09/18/24 History .COMPLEX PRN hypoglycemia metformin 1,000 mg tablet 1,000 mg PO BID 02/20/22 09/18/24 History omeprazole 20 mg capsule,delayed See Rx Instructions .Route .COMPLEX 02/20/22 09/18/24 History release sertraline 100 mg tablet 100 mg PO QAM 02/20/22 09/18/24 History sildenafil 50 mg tablet See Rx Instructions .Route .COMPLEX 02/20/22 09/18/24 History spironolactone 25 mg tablet 12.5 mg PO DAILY 02/20/22 09/18/24 History trazodone 100 mg tablet See Rx Instructions PO QHS 02/20/22 09/18/24 History acetaminophen 500 mg capsule 1,000 mg (2 x 500 mg) PO Q6H PRN 09/16/24 09/18/24 Rx pain #30 caps ibuprofen 600 mg tablet 600 mg PO TID PRN pain #30 tabs 09/16/24 09/18/24 Rx carvedilol 12.5 mg tablet (Coreg) 12.5 mg PO BID 09/18/24 09/18/24 History cetirizine 10 mg tablet (24Hour 10 mg PO DAILY PRN allergy symptoms 09/18/24 09/18/24 History Allergy) ezetimibe 10 mg tablet 10 mg PO ONCE 09/18/24 09/18/24 History varenicline 1 mg tablet (Chantix) 1 mg PO BID 09/18/24 09/18/24 History Allergies Allergy/AdvReac Type Severity Reaction Status Date / Time No Known Allergies Allergy Mild Verified 09/15/24 23:00 Vital Signs Vital Signs - 24 hr 09/17/24 11:28 09/17/24 12:06 09/17/24 13:54 Temperature 98.0 F Pulse Rate 67 66 70 Respiratory Rate 17 18 17 Blood Pressure 163/83 H 154/74 H 143/76 H Pulse Oximetry 100 100 100 Oxygen Delivery Room Air 09/17/24 15:38 09/17/24 16:15 09/17/24 17:10 Temperature Pulse Rate 73 79 69 Respiratory Rate 16 13 18 Blood Pressure 165/79 H 159/87 H 168/82 H Pulse Oximetry 100 97 99 Oxygen Delivery 09/17/24 17:35 09/17/24 17:51 09/17/24 18:23 Temperature Pulse Rate 70 67 75 Respiratory Rate 18 12 19 Blood Pressure 151/80 H 156/89 H 151/89 H Pulse Oximetry 100 98 97 Oxygen Delivery Exam Narrative: patient is laying in a stretcher Const: General: comfortable, no acute distress, well developed, ill appearing acutely and average body habitus Nutritional Appearance: average body habitus Orientation/consciousness: oriented to person, confusion, patient obtunded and lethargic HENMT: Head: normal to inspection, normocephalic and atraumatic Ears: hearing grossly normal bilaterally Face/Nose/Sinus: normal facial exam Face and sinus: normal facial exam Eyes: General: appearance normal, both eyes and all related structures Pupils: Equal, round and reactive pupils present EOM: EOMs intact bilaterally Neck: Neck: full ROM, no lymphadenopathy and no JVD Thyroid: thyroid normal Lymphatic: no lymphadenopathy noted Resp: Effort & Inspection: normal respiratory effort and able to speak in complete sentences Auscultation: clear to auscultation bilaterally Cardio: Jugular venous distension: no JVD Rate: regular rate Rhythm: regular rhythm Heart sounds: S1 normal heart sound present and S2 normal heart sound present GI: GI Palp: Yes Soft to palpation and Yes No hepatosplenomegaly present : General: Yes deferred Skin: Rashes: no rashes Wounds: no wounds Neuro: General: oriented to person, oriented to place, tone normal, moves all extremities, no meningeal signs, CN's II-XI intact bilaterally and Unable to assess gait Cranial nerves: Yes CN's II-XII intact bilaterally and Yes Equal, round and reactive pupils present Cognition (Neuro): abnormal cognition ( obtundation, lethargy) Speech: normal speech Gait exam (Neuro): Unable to assess gait Motor exam (neuro): 5/5 motor strength present throughout and Motor abnormalites present myoclonus ( right hemibody) Pupils: Normal pu pillary reactivity/response: bilateral Extrem: General: normal to inspection, full ROM, no joint enlargement and no pedal edema H&P: Results Labs Labs: Short CBC 09/17/24 Range/Units 13:20 WBC 6.9 (4.5-10.0) K/mm3 Hgb 14.2 (14.0-18.0) g/dL Hct 40.8 L (42.0-52.0) % Plt Count 272 (150-375) k/mm3 BMP 09/17/24 13:20 Sodium 137 Potassium 4.2 Chloride 106 Carbon Dioxide 26 BUN 13 Creatinine 1.10 Glucose 246 H Calcium 9.4 Cardiac Enzymes 09/17/24 09/17/24 Range/Units 12:55 13:20 Total Creatine Kinase 114 (55-170) U/L Troponin I < 0.012 < 0.012 (0.000-0.034) ng/mL Liver Function 09/17/24 Range/Units 13:20 Total Bilirubin 0.8 (0.2-1.3) mg/dL AST 19 (17-59) U/L ALT 14 (6-50) U/L Alkaline Phosphatase 81 (38-126) U/L Albumin 4.3 (3.5-5.1) g/dL Assessment and Plan Assessment and plan (1) Seizure disorder: Code(s): G40.909 - Epilepsy, unspecified, not intractable, without status epilepticus Status: Acute Assessment and Plan: admit to IMU I have reviewed lumbar puncture preliminary results serology pending MRI and EEG scheduled for the morning seizure precautions neurology consult (2) Encephalopathy: Code(s): G93.40 - Encephalopathy, unspecified Status: Acute Assessment and Plan: unclear etiology (3) HTN (hypertension): Qualifiers: Hypertension type: primary hypertension Qualified Code(s): I10 - Essential (primary) hypertension Code(s): I10 - Essential (primary) hypertension Status: Acute Assessment and Plan: resume home meds (4) Diabetes mellitus: Qualifiers: Diabetes mellitus type: type 2 Diabetes mellitus jail insulin use: without jail use Diabetes mellitus complication status: without complication Qualified Code(s): E11.9 - Type 2 diabetes mellitus without complications Code(s): E11.9 - Type 2 diabetes mellitus without complications Status: Acute Assessment and Plan: holding metformin holding ezetimibe insulin sliding scale as needed Hospitalist MIPS Advance Care Plan I have confirmed that the patient's Advanced Care Plan is present, code status is documented, or surrogate decision maker is listed in patient medical record.: Yes Medication Reconciliation I have utilized all available resources to obtain, update and review the pa sherris current medications (includes all prescriptions, OTC, herbals, cannabis, and nutritional supplements).: Yes
[2024-09-17 21:23] LABS: Add Urine Microscopic? YES; Appearance Urine Turbid (Clear); Bilirubin Urine Negative (Negative); Blood Urine 3+ (Negative); Color Urine Dark Yellow (Yellow); Glucose Urine UA Negative (Negative); Ketones Urine Negative (Negative); Leukocyte Esterase Ur 3+ LEU/UL (Negative); Nitrate Urine Negative (Negative); Protein Urine Trace mg/dL (Negative); Specific Grav Ur 1.007 (1.001-1.035); Urobilinogen Urine 0.2 mg/dL (<2.0)
[2024-09-17 21:32] LABS: Squamous Epithelial Cell Urine Few /hpf (Few); WBC Urine >100 /hpf (0-3)
[2024-09-17] MEDS: LORazepam INJ (*CRX) 2 MG/ML VIAL 4 MG IM (21:59)
--- NOTE | 2024-09-17 23:16 | ADMGEN ---
This patient, Bert Sofia, was admitted to IMU Room 214-01. Patient/family oriented to hospital policies and general routines including ID bracelet, bed and alarms, visiting hours, pain management, procedures, bathroom and other care routines, personal items, smoking policy, room service/diet, and visiting hours. Information on how to activate the Rapid Response Team has been discussed. Patient/Family are encouraged to report perceived risks to care and to ask questions if they do not understand what they are told or what they should do.
[2024-09-18] VITALS (17 sets, daily range): BP systolic 142–169; BP diastolic 64–90; PULSE 66–108; RESP 16–20; TEMP 36.6–38; O2SAT 93–100
--- NOTE | 2024-09-18 01:35 | PC.NURSE ---
Pt's is unsure of what medications the pt is currently taking. Pill bottles were provided. [facility]. Bottles of medication are either full and/or . Medication list updated, but not completed. Records request has been made to [facility] per ERP order.
[2024-09-18] MEDS: ACETAMINOPHEN 500 MG TABLET 1000 MG PO ×2 (02:58→09:04)
[2024-09-18 08:12] LABS: Glucose Point of Care 206 mg/dl (65-105)
[2024-09-18] MEDS: PANTOPRAZOLE 40 MG TABLET PO (09:02)
[2024-09-18] MEDS: amLODIPine BESYLATE 5 MG TABLET 10 MG BY MOUTH (09:02)
[2024-09-18] MEDS: SPIRONOLACTONE 12.5 MG TABLET PO (09:03)
[2024-09-18] MEDS: SERTRALINE HCL 50 MG TABLET 100 MG PO (09:03)
[2024-09-18] MEDS: carvediloL 12.5 MG TABLET PO (09:03)
[2024-09-18] MEDS: buPROPion HCL SR (12 HR) 150 MG TAB BY MOUTH (09:03)
[2024-09-18 12:03] LABS: Glucose Point of Care 201 mg/dl (65-105)
--- NOTE | 2024-09-18 14:10 | PC.NURSE ---
Pt to MRI via stretcher
--- NOTE | 2024-09-18 14:59 | PC.NURSE ---
Pt returned from MRI
--- NOTE | 2024-09-18 17:22 | PM.IMPN ---
Progress Note: A&P Assessment and Plan (1) Acute CVA (cerebrovascular accident): Code(s): I63.9 - Cerebral infarction, unspecified Status: Acute Assessment and Plan: - MRI brain; Acute infarct involving the left parietal-occipital region. Neurologist has been consulted to assist with mgt of pt symptoms. - Neurologist consulted in the ER during patient admission. - ECHO ordered. - Check Lipid Panel and A1C. - CTA Neck with no significant occlusion. - Will start on statin and low-dose aspirin, pending neurologist recommendations regarding antiplatelets. - PT/OT eval and treatment. - ST eval and treatment. - Safety monitoring and assist with care. (2) Encephalopathy: Code(s): G93.40 - Encephalopathy, unspecified Status: Acute Assessment and Plan: - Likely related to above. - Fall precautions. - Safety monitoring and assist with care. (3) Depression: Qualifiers: Depression Type: unspecified Qualified Code(s): F32.A - Depression, unspecified Code(s): F32.A - Depression, unspecified Status: Acute Assessment and Plan: - Resume sertraline with diet. (4) HLD (hyperlipidemia): Qualifiers: Hyperlipidemia type: mixed hyperlipidemia Qualified Code(s): E78.2 - Mixed hyperlipidemia Code(s): E78.5 - Hyperlipidemia, unspecified Status: Acute Assessment and Plan: - Lipid panel ordered. - Resume Ezetimibe. - Started on statin. (5) HTN (hypertension): Qualifiers: Hypertension type: primary hypertension Qualified Code(s): I10 - Essential (primary) hypertension Code(s): I10 - Essential (primary) hypertension Status: Acute Assessment and Plan: - Hold BP meds for now with acute CVA for permissive hypertension. (6) Blurred vision: Code(s): H53.8 - Other visual disturbances Status: Acute Assessment and Plan: - Possibly related to CVA. - Monitor for now. Plan Continue acute CVA treatment. Time Spent With Patient Time with patient: 25 - 35 minutes Subjective Date/time seen: 09/18/24 17:22 Patient confused and only oriented to self. Family bedside reporting patient has been confused the last couple of days. Interval history: Patient was brought in following a ground level fall episode at home. Patient's family reporting pt has been confused for a couple of days, he's been very forgetful as well. Patient had Lumbar Puncture done that's pending results. MRI brain however reveals an Acute infarct involving the left parietal-occipital region. Neurologist has been consulted to assist with mgt of pt symptoms. Review of Systems Review of Systems: ROS unobtainable: Yes unobtainable due to mental status Exam Narrative: General: Confused with some weakness on bedrest. HEENT: Atraumatic, PERRL, moist mucosa, EOM Neck: Supple. Lungs: Clear bilaterally. Heart: RRR, no murmurs. Abdomen: Soft, non-tender, non-distended, +ve BSX4 quadrants. Extremities: Acyanotic, no edema. Musculoskeletal: Right-sided weakness; 4/5 Right Arm, 1-2/5 RLE. Neuro: Confused. Right-sided weakness. Psych:Calm and co-operative. Objective Data Vital Signs Vital Signs: Vital Signs - 24 hr 09/17/24 17:35 09/17/24 17:51 09/17/24 18:23 Temperature Pulse Rate 70 67 75 Respiratory Rate 18 12 19 Blood Pressure 151/80 H 156/89 H 151/89 H Pulse Oximetry 100 98 97 Oxygen Delivery Oxygen Flow Rate 09/17/24 22:37 09/17/24 23:04 09/17/24 23:56 Temperature 97.8 F Pulse Rate 98 99 96 Respiratory Rate 14 14 14 Blood Pressure 155/82 H 172/70 H Pulse Oximetry 100 100 94 Oxygen Delivery Oxygen Flow Rate 09/18/24 00:00 09/18/24 00:00 09/18/24 02:00 Temperature Pulse Rate 93 108 H Respiratory Rate Blood Pressure Pulse Oximetry 93 Oxygen Delivery Oxygen Flow Rate 2 09/18/24 03:37 09/18/24 04:00 09/18/24 04:00 Temperature 97.9 F Pulse Rate 103 H 106 H Respiratory Rate 16 Blood Pressure 169/90 H Pulse Oximetry 100 93 Oxygen Delivery Oxygen Flow Rate 2 09/18/24 06:00 09/18/24 07:40 09/18/24 08:00 Temperature 100.4 F H Pulse Rate 108 H 97 94 Respiratory Rate 16 16 Blood Pressure 164/83 H Pulse Oximetry 100 99 Oxygen Delivery Nasal Cannula Oxygen Flow Rate 2 09/18/24 08:00 09/18/24 08:38 09/18/24 09:03 Temperature Pulse Rate 75 94 Respiratory Rate Blood Pressure Pulse Oximetry 99 Oxygen Delivery Nasal Cannula Oxygen Flow Rate 1 09/18/24 10:00 09/18/24 11:38 09/18/24 12:00 Temperature 99.4 F Pulse Rate 89 75 75 Respiratory Rate 20 20 Blood Pressure 142/66 H Pulse Oximetry 98 98 Oxygen Delivery Nasal Cannula Oxygen Flow Rate 2 09/18/24 12:00 09/18/24 14:00 09/18/24 16:00 Temperature 98 F Pulse Rate 85 72 69 Respiratory Rate 18 Blood Pressure 164/64 H Pulse Oximetry 99 Oxygen Delivery Oxygen Flow Rate Intake/Output Intake/Output: Intake & Output 09/15/24 09/16/24 09/17/24 09/18/24 23:59 23:59 23:59 23:59 Output Total 550 Balance -550 Meds/Results Medications: Active Medications Generic Name Dose Route Start Last Admin Trade Name Freq PRN Reason Stop Dose Admin Acetaminophen 1,000 mg 09/18/24 02:12 09/18/24 09:04 Acetaminophen 500 Mg Tablet PO 1,000 mg Q6H PRN Administration pain 1-3 Amlodipine Besylate 10 mg 09/18/24 09:00 09/18/24 09:02 Amlodipine Besylate 5 Mg Tablet BY MOUTH 10 mg DAILY MARGARETH Administration Bupropion HCl 150 mg 09/18/24 09:00 09/18/24 09:03 Bupropion Hcl Sr (12 Hr) 150 Mg Tab BY MOUTH 150 mg DAILY MARGARETH Administration Carvedilol 12.5 mg 09/18/24 09:00 09/18/24 09:03 Carvedilol 12.5 Mg Tablet PO 12.5 mg BIDWM MARGARETH Administration Dextrose 12.5 gm 09/17/24 20:25 Dextrose 50% 25 Gm/50 Ml Syringe IV PUSH PRN PRN Hypoglycemia Protocol Glucagon 1 mg 09/17/24 20:25 Glucagon For Inj 1 Mg Vial IM PRN PRN Hypoglycemia Protocol Glucose 15 gm 09/17/24 20:25 Glucose Oral Gel 15 Gm Of Glucse In 37.5 Gm Tube PO PRN PRN Hypoglycemia Protocol Dextrose 1,000 mls @ 100 mls/hr 09/17/24 20:25 Dextrose 5% 1,000 Ml IVPB PRN PRN Hypoglycemia Protocol Loratadine 10 mg 09/18/24 09:00 Loratadine 10 Mg Tablet PO DAILY PRN ALLERGY SYMPTOMS Morphine Sulfate 4 mg 09/17/24 20:25 Morphine Sulfate (*Crx) 4 Mg/Ml Inj IV PUSH Q2H PRN Pain Rated 7-10 Ondansetron HCl 4 mg 09/17/24 20:25 Ondansetron Inj 4 Mg/2 Ml Vial IV PUSH Q4H PRN Nausea Pantoprazole Sodium 40 mg 09/18/24 09:00 09/18/24 09:02 Pantoprazole 40 Mg Tablet PO 40 mg QAM [facility] Administration Sertraline HCl 100 mg 09/18/24 09:00 09/18/24 09:03 Sertraline Hcl 50 Mg Tablet PO 100 mg QAM [facility] Administration Spironolactone 12.5 mg 09/18/24 09:00 09/18/24 09:03 Spironolactone 12.5 Mg Tablet PO 12.5 mg DAILY [facility] Administration Trazodone HCl 200 mg 09/18/24 21:00 Trazodone Hcl 50 Mg Tablet PO QHS MARGARETH Trazodone HCl 50 mg 09/18/24 22:00 Trazodone Hcl 50 Mg Tablet PO DAILY@2200 [facility] Radiology Results: ITS Impressions Chest X-Ray 09/17/24 13:26 IMPRESSION: 1: NO ACUTE CARDIOPULMONARY DISEASE. Head CT 09/17/24 13:40 Impression: No intracranial hemorrhage, mass, or acute infarct. Atrophic change, as above. Cervical Spine CT 09/17/24 13:47 Impression: No fracture or subluxation of the cervical spine. Chest/Abdomen/Pelvis CTA 09/17/24 15:43 IMPRESSION: 1. Mild aortic atherosclerosis. No aneurysm or dissection. Lumbar Puncture Fluoroscopy 09/17/24 18:19 IMPRESSION: 1. Successful fluoro-guided lumbar puncture with normal opening pressure of 20 cm water. Brain MRI 09/18/24 15:04 IMPRESSION: 1. 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 Labs Labs: Laboratory Results - last 24 hr 09/17/24 09/17/24 09/18/24 17:10 21:13 07:55 POC Capillary Glucose 206 H Urine Color Dark yellow Urine Appearance Turbid H Urine pH 5.0 Ur Specific [place] 1.007 Urine Protein Trace Urine Glucose (UA) Negative Urine Ketones Negative Ur Blood (Man) 3+ H Urine Nitrate Negative Urine Bilirubin Negative Urine Urobilinogen 0.2 Leukocyte Esterase Rfl 3+ H Urine RBC 3-5 H Urine WBC >100 Ur Squamous Epith Cells Few CSF Source Csf CSF Appearance Clear CSF Color Colorless CSF RBC 26 H CSF Tot Nucleated Cells 0 CSF Lymphocytes 15 L CSF Monocytes 1 L CSF Glucose 128 H CSF Total Protein 38 Herpes Virus Source Cancelled Herpes Simplex Culture Cancelled HSV I Cancelled Herpes Simplex Virus II Cancelled 09/18/24 11:57 POC Capillary Glucose 201 H Urine Color Urine Appearance Urine pH Ur Specific Taylor Urine Protein Urine Glucose (UA) Urine Ketones Ur Blood (Man) Urine Nitrate Urine Bilirubin Urine Urobilinogen Leukocyte Esterase Rfl Urine RBC Urine WBC Ur Squamous Epith Cells CSF Source CSF Appearance CSF Color CSF RBC CSF Tot Nucleated Cells CSF Lymphocytes CSF Monocytes CSF Glucose CSF Total Protein Herpes Virus Source Herpes Simplex Culture HSV I Herpes Simplex Virus II Quality VTE Prophylaxis VTE prophylaxis: mechanical ordered Stroke Date of last known normal: 09/15/[address] [facility] Advance Care Plan I have confirmed that the patient's Advanced Care Plan is present, code status is documented, or surrogate decision maker is listed in patient medical record.: Yes Medication Reconciliation I have utilized all available resources to obtain, update and review the patients current medications (includes all prescriptions, OTC, herbals, cannabis, and nutritional supplements).: Yes
[2024-09-18 18:04] LABS: Cholesterol 296 mg/dL (0-200); HDL Direct 34 mg/dL; Triglycerides 116 mg/dL (<150)
[2024-09-18] MEDS: ASPIRIN 81 MG CHEWABLE TABLET 324 MG PO (18:05)
[2024-09-18 18:15] LABS: LDL Cholesterol Direct 219 mg/dL
[2024-09-18 18:41] LABS: Hemoglobin A1C 8.9 % (<5.7)
[2024-09-18 18:58] LABS: Glucose Point of Care 201 mg/dl (65-105)
[2024-09-18] MEDS: SIMVASTATIN 20 MG TABLET 40 MG PO (20:33)
[2024-09-18] MEDS: ONDANSETRON INJ 4 MG/2 ML VIAL IV PUSH (20:42)
[2024-09-19] VITALS (14 sets, daily range): BP systolic 106–170; BP diastolic 56–81; PULSE 67–93; RESP 12–24; TEMP 37.2–38.1; O2SAT 92–100
[2024-09-19 00:53] LABS: Glucose Point of Care 194 mg/dl (65-105)
[2024-09-19 06:34] LABS: Glucose Point of Care 201 mg/dl (65-105)
[2024-09-19 07:55] LABS: Basophils Percent Auto 0.3 % (0.2-1.2); Eosinophils Absolute Auto 0.1 K/mm3 (0-0.3); Eosinophils Percent Auto 0.5 % (0-4.4); Hematocrit 43.4 % (42.0-52.0); Immature Granulocyte Absolute 0.04 K/mm3 (0.00-0.031); Immature Granulocyte Percent A 0.4 % (0-0.5); Lymphocytes Absolute Auto 1.99 K/mm3 (0.9-3.2); Lymphocytes Percent Auto 18.7 % (18.3-44.2); Mean Corpuscular HGB Conc 34.6 g/dl (32-36); Mean Corpuscular Hemoglobin 32.4 pg (26-34); Mean Corpuscular Volume 93.7 fl (80-100); Mean Platelet Volume 9.6 fl (7.4-10.4); Monocytes Absolute Auto 0.6 K/mm3 (0.1-0.6); Monocytes Percent Auto 5.3 % (2.6-8.5); Neutrophils Percent Auto 74.8 % (45.5-73.1); Platelet Count Result 314 k/mm3 (150-375); Red Blood Count 4.63 M/mm3 (4.6-6.20); Red Cell Distribution Width 11.8 % (11.5-14.5); White Blood Count 10.7 K/mm3 (4.5-10.0)
[2024-09-19 08:11] LABS: Anion Gap 11 mmol/L (4-12); Blood Urea Nitrogen 16 mg/dL (9-20); Calcium 9.6 mg/dL (8.4-10.2); Carbon Dioxide 23 mmol/L (22-30); Chloride 104 mmol/L (98-107); Estimated CRCL calculation 67 ml/min; Estimated Glomerular Filt Rate > 60; Glucose 208 mg/dL (65-110); Lactic Acid Reflex 1.4 mmol/L (0.7-2.0); Sodium 138 mmol/L (137-145)
[2024-09-19] MEDS: ACETAMINOPHEN 500 MG TABLET 1000 MG PO (10:12)
[2024-09-19] MEDS: PIPERACILLN/TAZ 3.375GM/NS50ML 3.375 GM/50 ML BAG IVPB ×2 (10:12→16:57)
[2024-09-19] MEDS: ASPIRIN 81 MG ENTERIC TABLET PO (10:12)
[2024-09-19] MEDS: VANCOMYCIN 1,250 MG/NS 250 ML 1,250 MG/250 ML BAG 166.67 MG IVPB (10:12)
[2024-09-19] MEDS: buPROPion HCL SR (12 HR) 150 MG TAB BY MOUTH (10:13)
[2024-09-19] MEDS: PANTOPRAZOLE 40 MG TABLET PO (10:13)
[2024-09-19] MEDS: SERTRALINE HCL 50 MG TABLET 100 MG PO (10:14)
[2024-09-19] MEDS: ONDANSETRON INJ 4 MG/2 ML VIAL IV PUSH ×2 (10:28→23:33)
--- NOTE | 2024-09-19 11:13 | PC.NURSE ---
This RN attempted to call PT/OT to touch base and check status of evaluation.
[2024-09-19 11:47] LABS: Glucose Point of Care 239 mg/dl (65-105)
--- NOTE | 2024-09-19 11:50 | PM.IMPN ---
Progress Note: A&P Assessment and Plan (1) Acute CVA (cerebrovascular accident): Code(s): I63.9 - Cerebral infarction, unspecified Status: Acute Assessment and Plan: - MRI brain; Acute infarct involving the left parietal-occipital region. Neurologist has been consulted to assist with mgt of pt symptoms. - Neurologist consulted in the ER during patient admission. - ECHO pending. - LDL 219 and A1C 8.9. - Started on statin and baby aspirin. - CTA Neck with no significant occlusion. - Awaiting neurologist recommendations regarding antiplatelets. - PT/OT eval and treatment. - ST eval and treatment. - Safety monitoring and assist with care. - Fall precautions. (2) Encephalopathy: Code(s): G93.40 - Encephalopathy, unspecified Status: Acute Assessment and Plan: - Likely related to above vs meningitis vs other. - Started empirically on Vancomycin and Ceftriaxone added today. - Maintain fall and seizure precautions. - Safety monitoring and assist with care. (3) Fever of unknown origin: Code(s): R50.9 - Fever, unspecified Status: Acute Assessment and Plan: - Patient with fever episodes since admission, Tmax 100.5 overnight. - Patient on empiric Vancomycin initially, Ceftriaxone added. - Blood culture and LP results pending. - CXR negative. - Initial UA negative for UTI, repeat ordered. - CT abd/pelvis negative for infection signs. - Continue empiric abx for now. (4) Depression: Qualifiers: Depression Type: unspecified Qualified Code(s): F32.A - Depression, unspecified Code(s): F32.A - Depression, unspecified Status: Acute Assessment and Plan: - Resume sertraline with diet. (5) HLD (hyperlipidemia): Qualifiers: Hyperlipidemia type: mixed hyperlipidemia Qualified Code(s): E78.2 - Mixed hyperlipidemia Code(s): E78.5 - Hyperlipidemia, unspecified Status: Acute Assessment and Plan: - Lipid panel ordered. - Resume Ezetimibe. - Started on statin. (6) HTN (hypertension): Qualifiers: Hypertension type: primary hypertension Qualified Code(s): I10 - Essential (primary) hypertension Code(s): I10 - Essential (primary) hypertension Status: Acute Assessment and Plan: - Hold BP meds for now with acute CVA for permissive hypertension. (7) Blurred vision: Code(s): H53.8 - Other visual disturbances Status: Acute Assessment and Plan: - Possibly related to CVA vs other. - Monitor for now with IV abx. Plan Continue acute CVA treatment and empiric antibiotics. Time Spent With Patient Time with patient: 25 - 35 minutes Subjective Date/time seen: 09/19/24 11:50 Patient states he has a bad headache. Patient only knows his name and 's name, otherwise disoriented. Interval history: Patient calm on bedrest with generalized weakness. Appears frustrated by his condition and probably his headache. Review of Systems Review of Systems: ROS unobtainable: Yes unobtainable due to mental status Exam Narrative: General: Confused with generalized weakness on bedrest. HEENT: Atraumatic, PERRL, moist mucosa, EOM Neck: Supple. Lungs: Clear bilaterally. Heart: RRR, no murmurs. Abdomen: Soft, non-tender, non-distended, +ve BSX4 quadrants. Extremities: Acyanotic, no edema. Musculoskeletal: Right-sided weakness; 4/5 Right Arm, 1-2/5 RLE. Neuro: Confused. Right-sided weakness. Psych:Calm and co-operative. Objective Data Vital Signs Vital Signs: Vital Signs - 24 hr 09/18/24 12:00 09/18/24 12:00 09/18/24 14:00 Temperature Pulse Rate 75 85 72 Respiratory Rate 20 Blood Pressure Pulse Oximetry 98 Oxygen Delivery Nasal Cannula Oxygen Flow Rate 2 Fraction of Inspired Oxygen 09/18/24 16:00 09/18/24 16:00 09/18/24 19:01 Temperature 98 F 99.6 F Pulse Rate 69 69 66 Respiratory Rate 18 18 16 Blood Pressure 164/64 H 157/68 H Pulse Oximetry 99 99 95 Oxygen Delivery Nasal Cannula Oxygen Flow Rate 2 Fraction of Inspired Oxygen 09/18/24 20:00 09/18/24 20:00 09/18/24 22:00 Temperature Pulse Rate 69 73 Respiratory Rate Blood Pressure Pulse Oximetry 98 Oxygen Delivery Nasal Cannula Oxygen Flow Rate 2 Fraction of Inspired Oxygen 09/19/24 00:00 09/19/24 00:00 09/19/24 00:00 Temperature 100.1 F H Pulse Rate 92 87 Respiratory Rate 24 H Blood Pressure 106/68 Pulse Oximetry 97 99 Oxygen Delivery Nasal Cannula Oxygen Flow Rate 2 Fraction of Inspired Oxygen 09/19/24 04:00 09/19/24 04:00 09/19/24 04:00 Temperature 100.5 F H Pulse Rate 75 92 Respiratory Rate 20 Blood Pressure 162/64 H Pulse Oximetry 98 99 Oxygen Delivery Nasal Cannula Oxygen Flow Rate 2 Fraction of Inspired Oxygen 09/19/24 06:00 09/19/24 08:00 09/19/24 08:00 Temperature 100.2 F H Pulse Rate 82 81 Respiratory Rate 16 Blood Pressure 166/78 H Pulse Oximetry 98 98 Oxygen Delivery Nasal Cannula Oxygen Flow Rate 2 Fraction of Inspired Oxygen 09/19/24 08:00 09/19/24 08:38 09/19/24 10:00 Temperature Pulse Rate 77 81 Respiratory Rate Blood Pressure Pulse Oximetry 98 Oxygen Delivery Nasal Cannula Oxygen Flow Rate 2 Fraction of Inspired Oxygen 28 Intake/Output Intake/Output: Intake & Output 09/16/24 09/17/24 09/18/24 09/19/24 23:59 23:59 23:59 23:59 Intake Total 250 Output Total 550 600 Balance -550 -350 Meds/Results Medications: Active Medications Generic Name Dose Route Start Last Admin Trade Name Freq PRN Reason Stop Dose Admin Acetaminophen 1,000 mg 09/18/24 02:12 09/19/24 10:12 Acetaminophen 500 Mg Tablet PO 1,000 mg Q6H PRN Administration pain 1-3 Amlodipine Besylate 10 mg 09/18/24 09:00 09/18/24 09:02 Amlodipine Besylate 5 Mg Tablet BY MOUTH 10 mg DAILY MARGARETH Administration Aspirin 81 mg 09/19/24 09:00 09/19/24 10:12 Aspirin 81 Mg Enteric Tablet PO 81 mg QAM MARGARETH Administration Bupropion HCl 150 mg 09/18/24 09:00 09/19/24 10:13 Bupropion Hcl Sr (12 Hr) 150 Mg Tab BY MOUTH 150 mg DAILY MARGARETH Administration Carvedilol 12.5 mg 09/18/24 09:00 09/18/24 18:05 Carvedilol 12.5 Mg Tablet PO Not Given BIDWM [facility] Dextrose 12.5 gm 09/17/24 20:25 Dextrose 50% 25 Gm/50 Ml Syringe IV PUSH PRN PRN Hypoglycemia Protocol Glucagon 1 mg 09/17/24 20:25 Glucagon For Inj 1 Mg Vial IM PRN PRN Hypoglycemia Protocol Glucose 15 gm 09/17/24 20:25 Glucose Oral Gel 15 Gm Of Glucse In 37.5 Gm Tube PO PRN PRN Hypoglycemia Protocol Dextrose 1,000 mls @ 100 mls/hr 09/17/24 20:25 Dextrose 5% 1,000 Ml IVPB PRN PRN Hypoglycemia Protocol Vancomycin HCl 1,500 mg in 500 mls @ 250 mls/hr 09/20/24 02:00 Vancomycin 1,500 Mg/Ns 500 Ml IVPB Q18H MARGARETH Piperacillin/Tazobactam/Dextrose 3.375 gm in 50 mls @ 100 mls/hr 09/19/24 17:00 Zosyn 3.375 Gm/Ns 50 Ml IVPB Q6HR MARGARETH Loratadine 10 mg 09/18/24 09:00 Loratadine 10 Mg Tablet PO DAILY PRN ALLERGY SYMPTOMS Morphine Sulfate 4 mg 09/17/24 20:25 Morphine Sulfate (*Crx) 4 Mg/Ml Inj IV PUSH Q2H PRN Pain Rated 7-10 Ondansetron HCl 4 mg 09/17/24 20:25 09/19/24 10:28 Ondansetron Inj 4 Mg/2 Ml Vial IV PUSH 4 mg Q4H PRN Administration Nausea Pantoprazole Sodium 40 mg 09/18/24 09:00 09/19/24 10:13 Pantoprazole 40 Mg Tablet PO 40 mg QAM MARGARETH Administration Perflutren Lipid Microsphere 0 ml 09/18/24 17:31 Perflutren Lipid Microspheres 1.5 Ml Vial Diluted To 10 Ml Total Volume IV PUSH 09/21/24 17:32 ONCE PRN adequate visualization Protocol Sertraline HCl 100 mg 09/18/24 09:00 09/19/24 10:14 Sertraline Hcl 50 Mg Tablet PO 100 mg QAM MARGARETH Administration Simvastatin 40 mg 09/18/24 21:00 09/18/24 20:33 Simvastatin 20 Mg Tablet PO 40 mg BEDTIME MARGARETH Administration Spironolactone 12.5 mg 09/18/24 09:00 09/18/24 09:03 Spironolactone 12.5 Mg Tablet PO 12.5 mg DAILY MARGARETH Administration Trazodone HCl 200 mg 09/18/24 21:00 09/18/24 20:46 Trazodone Hcl 50 Mg Tablet PO Not Given QHS MARGARETH Trazodone HCl 50 mg 09/18/24 22:00 09/18/24 20:46 Trazodone Hcl 50 Mg Tablet PO Not Given DAILY@2200 [facility] Radiology Results: ITS Impressions Head CT 09/17/24 13:40 Impression: No intracranial hemorrhage, mass, or acute infarct. Atrophic change, as above. Cervical Spine CT 09/17/24 13:47 Impression: No fracture or subluxation of the cervical spine. Chest/Abdomen/Pelvis CTA 09/17/24 15:43 IMPRESSION: 1. Mild aortic atherosclerosis. No aneurysm or dissection. Lumbar Puncture Fluoroscopy 09/17/24 18:19 IMPRESSION: 1. Successful fluoro-guided lumbar puncture with normal opening pressure of 20 cm water. Brain MRI 09/18/24 15:04 IMPRESSION: 1. 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 Chest X-Ray 09/19/24 09:10 IMPRESSION: 1. No acute cardiopulmonary disease. Labs Labs: Laboratory Results - last 24 hr 09/18/24 09/18/24 09/18/24 11:57 17:47 18:53 WBC RBC Hgb Hct MCV MCH MCHC RDW Plt Count MPV Immature Gran % (Auto) Neut % (Auto) Lymph % (Auto) [place] % (Auto) Eos % (Auto) Baso % (Auto) Lymph # (Auto) [place] # (Auto) Eos # (Auto) Baso # (Auto) Abs Immat Gran (auto) Absolute Neuts (auto) Absolute Nucleated RBC Nucleated RBC % Sodium Potassium Chloride Carbon Dioxide Anion Gap BUN Creatinine Estim Creat Clear Calc Estimated GFR Glucose POC Capillary Glucose 201 H 201 H Hemoglobin A1c 8.9 H Lactic Acid Calcium Triglycerides 116 Cholesterol 296 H LDL Cholesterol Direct 219 HDL Direct 34 09/18/24 09/19/24 09/19/24 23:59 06:26 07:18 WBC 10.7 H RBC 4.63 Hgb 15.0 Hct 43.4 MCV 93.7 MCH 32.4 MCHC 34.6 RDW 11.8 Plt Count 314 MPV 9.6 Immature Gran % (Auto) 0.4 Neut % (Auto) 74.8 H Lymph % (Auto) 18.7 [place] % (Auto) 5.3 Eos % (Auto) 0.5 Baso % (Auto) 0.3 Lymph # (Auto) 1.99 [place] # (Auto) 0.6 Eos # (Auto) 0.1 Baso # (Auto) 0.0 Abs Immat Gran (auto) 0.04 H Absolute Neuts (auto) 8.0 H Absolute Nucleated RBC 0.000 Nucleated RBC % 0.0 Sodium 138 Potassium 4.0 Chloride 104 Carbon Dioxide 23 Anion Gap 11 BUN 16 Creatinine 1.10 Estim Creat Clear Calc 67 Estimated GFR > 60 Glucose 208 H POC Capillary Glucose 194 H 201 H Hemoglobin A1c Lactic Acid 1.4 Calcium 9.6 Triglycerides Cholesterol LDL Cholesterol Direct HDL Direct 09/19/24 11:40 WBC RBC Hgb Hct MCV MCH MCHC RDW Plt Count MPV Immature Gran % (Auto) Neut % (Auto) Lymph % (Auto) [place] % (Auto) Eos % (Auto) Baso % (Auto) Lymph # (Auto) [place] # (Auto) Eos # (Auto) Baso # (Auto) Abs Immat Gran (auto) Absolute Neuts (auto) Absolute Nucleated RBC Nucleated RBC % Sodium Potassium Chloride Carbon Dioxide Anion Gap BUN Creatinine Estim Creat Clear Calc Estimated GFR Glucose POC Capillary Glucose 239 H Hemoglobin A1c Lactic Acid Calcium Triglycerides Cholesterol LDL Cholesterol Direct HDL Direct Quality VTE Prophylaxis VTE prophylaxis: mechanical ordered Hospitalist MIPS Advance Care Plan I have confirmed that the patient's Advanced Care Plan is present, code status is documented, or surrogate decision maker is listed in patient medical record.: Yes Medication Reconciliation I have utilized all available resources to obtain, update and review the patients current medications (includes all prescriptions, OTC, herbals, cannabis, and nutritional supplements).: Yes
--- NOTE | 2024-09-19 12:15 | PCSTNOTE ---
Please refer to the Bedside Swallow Evaluation in the EMR. Please note, silent aspiration cannot be ruled out at bedside.
[2024-09-19] MEDS: VANCOMYCIN 1,000 MG/NS 250 ML 1,000 MG/250 ML BAG 250 MG IVPB (12:21)
[2024-09-19] MEDS: KETOROLAC 15 MG/ML VIAL (*BKC) IV PUSH (12:22)
[2024-09-19] MEDS: cefTRIAXone 2 GM/NS 100 ML 2 GM/100 ML BAG IVPB ×2 (12:22→20:57)
--- NOTE | 2024-09-19 14:11 | PC.NURSE ---
This RN called PT/OT to check the status of the pt's evaluation. This RN was unable to touch base with either.
--- NOTE | 2024-09-19 15:29 | PCPTNOTE ---
attempted PT eval, pt alert but only oriented to self, answers questions but not appropriately, responds yes to everything, unable to look left when asked, unable to count fingers on PT's hand when asked, pt not appropriate for mobility out of bed at this time, will follow
[2024-09-19] MEDS: SIMVASTATIN 20 MG TABLET 40 MG PO (20:58)
[2024-09-19 21:39] LABS: Glucose Point of Care 235 mg/dl (65-105)
[2024-09-19 21:47] LABS: Add Urine Microscopic? YES; Appearance Urine Clear (Clear); Bacteria Urine None Seen /hpf; Bilirubin Urine Negative (Negative); Blood Urine 2+ (Negative); Color Urine Yellow (Yellow); Glucose Urine UA Negative (Negative); Ketones Urine Negative (Negative); Leukocyte Esterase Ur Negative LEU/UL (Negative); Nitrate Urine Negative (Negative); Non Pathogenic Casts 0-2; Protein Urine 1+ mg/dL (Negative); RBC Urine 0-2 /hpf (0-2); Specific Grav Ur > 1.045 (1.001-1.035); Squamous Epithelial Cell Urine Occasional /hpf (Few); Urobilinogen Urine 0.2 mg/dL (<2.0); WBC Urine 0-5 /hpf (0-3); pH Urine 5.5 (5.0-9.0)
[2024-09-20] VITALS: PULSE 80; O2SAT 92
[2024-09-20] MEDS: DEXTROSE 5% IVPB (01:35)
[2024-09-20] MEDS: LEVETIRACETAM IVPB (01:35)
[2024-09-20 02:00] VITALS: PULSE 73
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
[2024-09-20] MEDS: PIPERACILLN/TAZ 3.375GM/NS50ML 3.375 GM/50 ML BAG IVPB (02:46)
--- NOTE | 2024-09-20 03:03 | PM.TDS ---
Transfer Discharge Sum: Prov Provider Date of admission: 09/19/24 12:08 Primary care physician: Randal Garcia MD Admitting clinician: William Donaldson MD Consults: 09/17/24 Consult to Physician Routine Comment: Consulting Provider: Sergio Ruffin Reason for consultation: encephalopathy, Has provider been notified: Yes Discharging clinician: William Donaldson V. Anticipated date of transfer: 09/19/24 Receiving physician/facility: [facility]. Dr. Gonzalez DS: Admitting Diagnosis Discharge Date 09/19/24 Admitting Diagnosis (1) Seizure disorder: Code(s): G40.909 - Epilepsy, unspecified, not intractable, without status epilepticus Status: Acute Assessment and Plan: admit to IMU I have reviewed lumbar puncture preliminary results serology pending MRI and EEG scheduled for the morning seizure precautions neurology consult (2) Encephalopathy: Code(s): G93.40 - Encephalopathy, unspecified Status: Acute Assessment and Plan: unclear etiology (3) HTN (hypertension): Qualifiers: Hypertension type: primary hypertension Qualified Code(s): I10 - Essential (primary) hypertension Code(s): I10 - Essential (primary) hypertension Status: Acute Assessment and Plan: resume home meds (4) Diabetes mellitus: Qualifiers: Diabetes mellitus type: type 2 Diabetes mellitus senior care insulin use: without industrial hygienist use Diabetes mellitus complication status: without complication Qualified Code(s): E11.9 - Type 2 diabetes mellitus without complications Code(s): E11.9 - Type 2 diabetes mellitus without complications Status: Acute Assessment and Plan: holding metformin holding ezetimibe insulin sliding scale as needed DS: Discharge Diagnosis Discharge Diagnosis (1) Fever of unknown origin: Code(s): R50.9 - Fever, unspecified Status: Acute (2) Acute CVA (cerebrovascular accident): Code(s): I63.9 - Cerebral infarction, unspecified Status: Acute (3) Seizure disorder: Code(s): G40.909 - Epilepsy, unspecified, not intractable, without status epilepticus Status: Acute (4) Encephalopathy: Code(s): G93.40 - Encephalopathy, unspecified Status: Acute (5) HTN (hypertension): Qualifiers: Hypertension type: primary hypertension Qualified Code(s): I10 - Essential (primary) hypertension Code(s): I10 - Essential (primary) hypertension Status: Acute (6) Diabetes mellitus: Qualifiers: Diabetes mellitus type: type 2 Diabetes mellitus senior care insulin use: without industrial hygienist use Diabetes mellitus complication status: without complication Qualified Code(s): E11.9 - Type 2 diabetes mellitus without complications Code(s): E11.9 - Type 2 diabetes mellitus without complications Status: Acute (7) EtOH dependence: Code(s): F10.20 - Alcohol dependence, uncomplicated Status: Acute Transfer Discharge Sum: Med Medications Active and Home Medications: Home Medications alcohol swabs (Alcohol Prep Pads) See Rx Instructions .Route .COMPLEX 02/20/22 [History Confirmed 09/18/24] amlodipine 10 mg tablet (Norvasc) See Rx Instructions .Route .COMPLEX 02/20/22 [History Confirmed 09/18/24] blood sugar diagnostic (Accu-Chek Guide test strips) 02/20/22 [History Confirmed 09/18/24] bupropion HCl 150 mg tablet,12 hr sustained-release See Rx Instructions .Route .COMPLEX 02/20/22 [History Confirmed 09/18/24] carvedilol 6.25 mg tablet 6.25 mg PO Q12H 02/20/22 [History Confirmed 09/18/24] cholecalciferol (vitamin D3) 25 mcg (1,000 unit) tablet 25 mcg PO DAILY 02/20/22 [History Confirmed 09/18/24] glucose 4 gram chewable tablet See Rx Instructions .Route .COMPLEX PRN hypoglycemia 02/20/22 [History Confirmed 09/18/24] metformin 1,000 mg tablet 1,000 mg PO BID 02/20/22 [History Confirmed 09/18/24] omeprazole 20 mg capsule,delayed release See Rx Instructions .Route .COMPLEX 02/20/22 [History Confirmed 09/18/24] sertraline 100 mg tablet 100 mg PO QAM 02/20/22 [History Confirmed 09/18/24] sildenafil 50 mg tablet See Rx Instructions .Route .COMPLEX 02/20/22 [History Confirmed 09/18/24] spironolactone 25 mg tablet 12.5 mg PO DAILY 02/20/22 [History Confirmed 09/18/24] trazodone 100 mg tablet See Rx Instructions PO QHS 02/20/22 [History Confirmed 09/18/24] acetaminophen 500 mg capsule 1,000 mg (2 x 500 mg) PO Q6H PRN pain #30 caps 09/16/24 [Rx Confirmed 09/18/24] ibuprofen 600 mg tablet 600 mg PO TID PRN pain #30 tabs 09/16/24 [Rx Confirmed 09/18/24] carvedilol 12.5 mg tablet (Coreg) 12.5 mg PO BID 09/18/24 [History Confirmed 09/18/24] cetirizine 10 mg tablet (24Hour Allergy) 10 mg PO DAILY PRN allergy symptoms 09/18/24 [History Confirmed 09/18/24] ezetimibe 10 mg tablet 10 mg PO ONCE 09/18/24 [History Confirmed 09/18/24] varenicline 1 mg tablet (Chantix) 1 mg PO BID 09/18/24 [History Confirmed 09/18/24] Active Medications Acetaminophen (Acetaminophen 500 Mg Tablet) 1,000 mg PO Q6H PRN PRN Reason: pain 1-3 Last Admin: 09/19/24 10:12 Dose: 1,000 mg Amlodipine Besylate (Amlodipine Besylate 5 Mg Tablet) 10 mg BY MOUTH DAILY [facility] Last Admin: 09/18/24 09:02 Dose: 10 mg Aspirin (Aspirin 81 Mg Enteric Tablet) 81 mg PO QAM [facility] Last Admin: 09/19/24 10:12 Dose: 81 mg Bupropion HCl (Bupropion Hcl Sr (12 Hr) 150 Mg Tab) 150 mg BY MOUTH DAILY [facility] Last Admin: 09/19/24 10:13 Dose: 150 mg Carvedilol (Carvedilol 12.5 Mg Tablet) 12.5 mg PO BIDWM [facility] Last Admin: 09/18/24 18:05 Dose: Not Given Dextrose (Dextrose 50% 25 Gm/50 Ml Syringe) 12.5 gm IV PUSH PRN PRN; Protocol PRN Reason: Hypoglycemia Glucagon (Glucagon For Inj 1 Mg Vial) 1 mg IM PRN PRN; Protocol PRN Reason: Hypoglycemia Glucose (Glucose Oral Gel 15 Gm Of Glucse In 37.5 Gm Tube) 15 gm PO PRN PRN; Protocol PRN Reason: Hypoglycemia Dextrose (Dextrose 5% 1,000 Ml) 1,000 mls @ 100 mls/hr IVPB PRN PRN; Protocol PRN Reason: Hypoglycemia Vancomycin HCl (Vancomycin 1,500 Mg/Ns 500 Ml) 1,500 mg in 500 mls @ 250 mls/hr IVPB Q18H [facility] Piperacillin/Tazobactam/Dextrose (Zosyn 3.375 Gm/Ns 50 Ml) 3.375 gm in 50 mls @ 100 mls/hr IVPB Q6HR [facility] Last Admin: 09/20/24 02:46 Dose: 100 mls/hr Ceftriaxone Sodium (Rocephin 2 Gm/Ns 100 Ml) 2 gm in 100 mls @ 200 mls/hr IVPB Q12HR [facility] Last Admin: 09/19/24 20:57 Dose: 200 mls/hr Loratadine (Loratadine 10 Mg Tablet) 10 mg PO DAILY PRN PRN Reason: ALLERGY SYMPTOMS Morphine Sulfate (Morphine Sulfate (*Crx) 4 Mg/Ml Inj) 4 mg IV PUSH Q2H PRN PRN Reason: Pain Rated 7-10 Ondansetron HCl (Ondansetron Inj 4 Mg/2 Ml Vial) 4 mg IV PUSH Q4H PRN PRN Reason: Nausea Last Admin: 09/19/24 23:33 Dose: 4 mg Pantoprazole Sodium (Pantoprazole 40 Mg Tablet) 40 mg PO QAM [facility] Last Admin: 09/19/24 10:13 Dose: 40 mg Perflutren Lipid Microsphere (Perflutren Lipid Microspheres 1.5 Ml Vial Diluted To 10 Ml Total Volume) 0 ml IV PUSH ONCE PRN; Protocol PRN Reason: adequate visualization Stop: 09/21/24 17:32 Sertraline HCl (Sertraline Hcl 50 Mg Tablet) 100 mg PO QAM [facility] Last Admin: 09/19/24 10:14 Dose: 100 mg Simvastatin (Simvastatin 20 Mg Tablet) 40 mg PO BEDTIME [facility] Last Admin: 09/19/24 20:58 Dose: 40 mg Spironolactone (Spironolactone 12.5 Mg Tablet) 12.5 mg PO DAILY [facility] Last Admin: 09/18/24 09:03 Dose: 12.5 mg Trazodone HCl (Trazodone Hcl 50 Mg Tablet) 200 mg PO QHS [facility] Last Admin: 09/19/24 20:02 Dose: Not Given Trazodone HCl (Trazodone Hcl 50 Mg Tablet) 50 mg PO DAILY@2200 [facility] Last Admin: 09/19/24 20:03 Dose: Not Given Transfer Discharge Sum: Hosp Hospital Course Hospital course: Bert Sofia is a 63 year old male with past medical history significant for hypertension, generalized anxiety disorder, type diabetes mellitus, tobacco dependence, ETOH dependence. PATIENT PRESENTED TO EMERGENCY ROOM DUE TO HEADACHE AND BLURRY VISION PRELIMINARY WORKUP ESSENTIALLY NONREVEALING INITIALLY PATIENT SENT HOME HOWEVER RETURNED NEXT DAY WITH WORSENING HEADACHE AND BLURRY VISION PATIENT HAD LP DONE AND WAS STARTED ON [facility] ANTIBIOTICS AFTER SPIKING A FEVER ALSO PATIENT STARTED HAVING CONVULSIONS HE HAD PROGRESSIVE DECLINE OF HIS MENTATION STATUS. PATIENT WAS TRANSFERRED TO [facility] FURTHER EVALUATION MANAGEMENT AND TREATMENT. Time Spent with Patient Time attestation: Total time spent providing and/or coordinating transfer services:120 minutes Exam Narrative: patient is in bed Const: General: comfortable, no acute distress, well developed, ill appearing acutely and average body habitus Nutritional Appearance: average body habitus Orientation/consciousness: Other orientation findings ( stuporous) HENMT: Head: normal to inspection, normocephalic and atraumatic Ears: hearing grossly normal bilaterally Face/Nose/Sinus: normal facial exam Face and sinus: normal facial exam Eyes: General: appearance normal, both eyes and all related structures Pupils: Equal, round and reactive pupils present EOM: EOMs intact bilaterally Neck: Neck: full ROM, no lymphadenopathy and no JVD Thyroid: thyroid normal Lymphatic: no lymphadenopathy noted Resp: Effort & Inspection: normal respiratory effort and able to speak in complete sentences Auscultation: clear to auscultation bilaterally Cardio: Jugular venous distension: no JVD Rate: regular rate Rhythm: regular rhythm Heart sounds: S1 normal heart sound present and S2 normal heart sound present GI: GI Palp: Yes Soft to palpation and Yes No hepatosplenomegaly present : General: Yes deferred Skin: Rashes: no rashes Wounds: no wounds Neuro: General: oriented to person, moves all extremities, CN's II-XI intact bilaterally, Unable to assess gait and other ( stuporous) Cranial nerves: Yes CN's II-XII intact bilaterally and Yes Equal, round and reactive pupils present Cognition (Neuro): abnormal cognition ( stuporous) Speech: normal speech Gait exam (Neuro): Unable to assess gait Motor exam (neuro): 5/5 motor strength present throughout Other: horizontal nystagmus Extrem: General: normal to inspection, full ROM, no joint enlargement and no pedal edema DS: Data Data Completed and Pending Completed studies during hospitalization: Pending at discharge 09/17/24 14:33 Cytology [PTH] Routine Labs on day of discharge: Labs from last 24 hours 09/19/24 09/19/24 09/19/24 21:13 21:11 11:40 WBC RBC Hgb Hct MCV MCH MCHC RDW Plt Count MPV Immature Gran % (Auto) Neut % (Auto) Lymph % (Auto) [place] % (Auto) Eos % (Auto) Baso % (Auto) Lymph # (Auto) [place] # (Auto) Eos # (Auto) Baso # (Auto) Abs Immat Gran (auto) Absolute Neuts (auto) Absolute Nucleated RBC Nucleated RBC % Sodium Potassium Chloride Carbon Dioxide Anion Gap BUN Creatinine Estim Creat Clear Calc Estimated GFR Glucose POC Capillary Glucose 235 H 239 H Lactic Acid Calcium Urine Color Yellow Urine Appearance Clear Urine pH 5.5 Ur Specific [place] > 1.045 H Urine Protein 1+ H Urine Glucose (UA) Negative Urine Ketones Negative Ur Blood (Man) 2+ H Urine Nitrate Negative Urine Bilirubin Negative Urine Urobilinogen 0.2 Ur Leukocyte Esterase Negative Urine RBC 0-2 Urine WBC 0-5 Ur Squamous Epith Cells Occasional Urine Bacteria None seen Urine Casts 0-2 09/19/24 09/19/24 07:18 06:26 WBC 10.7 H RBC 4.63 Hgb 15.0 Hct 43.4 MCV 93.7 MCH 32.4 MCHC 34.6 RDW 11.8 Plt Count 314 MPV 9.6 Immature Gran % (Auto) 0.4 Neut % (Auto) 74.8 H Lymph % (Auto) 18.7 [place] % (Auto) 5.3 Eos % (Auto) 0.5 Baso % (Auto) 0.3 Lymph # (Auto) 1.99 [place] # (Auto) 0.6 Eos # (Auto) 0.1 Baso # (Auto) 0.0 Abs Immat Gran (auto) 0.04 H Absolute Neuts (auto) 8.0 H Absolute Nucleated RBC 0.000 Nucleated RBC % 0.0 Sodium 138 Potassium 4.0 Chloride 104 Carbon Dioxide 23 Anion Gap 11 BUN 16 Creatinine 1.10 Estim Creat Clear Calc 67 Estimated GFR > 60 Glucose 208 H POC Capillary Glucose 201 H Lactic Acid 1.4 Calcium 9.6 Urine Color Urine Appearance Urine pH Ur Specific [place] Urine Protein Urine Glucose (UA) Urine Ketones Ur Blood (Man) Urine Nitrate Urine Bilirubin Urine Urobilinogen Ur Leukocyte Esterase Urine RBC Urine WBC Ur Squamous Epith Cells Urine Bacteria Urine Casts Preliminary micro results at discharge 09/17/24 17:10 CSF Culture - Preliminary Cerebral Spinal Fluid Acid Fast Bacilli Culture - Preliminary EXAMINATION: CTA chest abdomen pelvis DATE: 09/17/2024 15:31 INDICATION: Abdominal pain. TECHNIQUE: Computed tomographic angiography (CTA) of the chest, abdomen, and pelvis was performed with 100 mL Omnipaque-350 intravenous contrast. Automated exposure control and iterative reconstruction technique were employed. The dose-length product was 866.01 mGy-cm. Maximum intensity projection 3D-reconstructions of the aorta and other arteries were constructed by the technologist on a separate workstation. COMPARISON: None. FINDINGS: CHEST CTA: The lungs demonstrate mild atelectasis. No pleural effusion. The heart size is normal. No pericardial effusion. There is mild aortic atherosclerosis. No aneurysm or dissection. There is no pulmonary embolus. There is severe thoracic spondylosis. ABDOMEN AND PELVIS CTA: The liver, gallbladder, spleen, pancreas, and adrenal glands are normal. There are cysts in the kidneys measuring up to 15 mm on the left. The prostate is mildly enlarged. There are no dilated loops of bowel. The appendix is normal. There are no pathologically enlarged lymph nodes. There is no free intraperitoneal fluid. There is no significant stenosis of celiac axis, superior mesenteric artery, the renal arteries, or inferior mesenteric artery. There is mild lumbar spondylosis. IMPRESSION: 1. Mild aortic atherosclerosis. No aneurysm or dissection. EXAMINATION: MR brain/brain stem wo/w con DATE: 09/18/2024 14:56 INDICATION: Encephalopathy. Headache. TECHNIQUE: Magnetic resonance imaging (MRI) of the brain and brainstem was performed without and with 20 mL MultiHance intravenous contrast. COMPARISON: Head CT 09/17/2024 FINDINGS: There is an acute infarct involving the left parietal-occipital region in the expected distribution of left middle cerebral artery. There are scattered areas of nonspecific increased T2-weighted signal intensity in the cerebral white matter and santhosh, which is within normal limits for the patient's age. There is no intracranial hemorrhage or abnormal mass lesion. The ventricles are normal in size. There is mild mucosal thickening in the paranasal sinuses. The orbits are normal. There are bilateral mastoid effusions. IMPRESSION: 1. 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 Non-contrast Head CT History: Declining mental status COMPARISON: 09/19/2024 Technique: Axial non-contrast imaging of the brain was performed. Dose reduction technique was used on this scan by utilizing automated exposure control and iterative reconstruction technique. The dose-length product (DLP) was 756.67 mGy-cm. Findings: There is no evidence of intracranial hemorrhage, mass lesion, or acute infarct. Brain parenchyma appears normal. The ventricles and subarachnoid spaces are normal in size. The calvarium appears normal. The visualized paranasal sinuses and mastoid air cells are clear. Impression: No significant abnormality seen.
[2024-09-20 14:59] LABS: Source CEREBROSPINAL FLUID
[2024-09-21 00:19] LABS: JC Polyoma Virus DNA, QL NOT DETECTED; JC Polyoma Virus Source SERUM
--- NOTE | 2024-09-21 10:07 | WPDNEUROLOGY ---
Neurology EEG Report General Information Date of Study: 09/18/24 TEST Electroencephalogram DIAGNOSIS encephalopathy CONDITION OF RECORDING bedside recording EEG NUMBER [id number] CLINICAL HISTORY according the family the patient has become confused also complaints of headache. The test was cut short due to the patient for the electrodes of towards the end EEG DESCRIPTION While awake the background activity consists of posterior dominant alpha rhythm at 10 hertz with an amplitude of 20-40 microvolts which appears moderately formed. Anteriorly low amplitude mixed frequency activity was seen. There is a good anterior or posterior gradient. Electrode artifacts were noted intermittently. Patient was noted to be drowsy during which attenuation of background activity was seen. Hyperventilation or photic stimulation were not performed. Patient pulled off electrodes towards the later part of the study and hence the study was ended. IMPRESSION This is an essentially normal EEG obtained during awake and drowsy states.
[2024-09-21 13:37] LABS: Lyme Disease Ab (IgM), Blot NEGATIVE (NEGATIVE); Lyme Disease Ab(IgG), Blot NEGATIVE (NEGATIVE)
[2024-09-22 18:39] LABS: Herpes Simplex Type 1 DNA PCR Results Below (Not Detected); Herpes Simplex Type 2 DNA PCR Results Below (Not Detected)
[2024-09-22 20:29] LABS: Lyme AB IgG, Immunoblot NO BANDS DETECTED; Lyme AB IgM, Immunoblot NO BANDS DETECTED
[2024-09-22 23:58] LABS: VDRL Quantitative CSF NON-REACTIVE
[2024-09-23 07:47] LABS: Source Epstein Barr Virus CSF
[2024-09-23 08:57] LABS: Varicella IgM Antibody 0.16
[2024-09-23 10:39] LABS: Cryptococcus Antigen NOT DETECTED; Cryptococcus Specimen Source CEREBROSPINAL FLUID
[2024-09-24 17:27] LABS: West Nile Virus, IgM <0.90 index
[2024-09-25 07:29] LABS: Oligoclonal Bands (IgG), CSF Absent; Synthesis Rate IgG, CSF -3.2
[2024-09-25 07:30] LABS: Albumin, CSF 15.4; IgG Index, CSF 0.46
[2024-09-25 07:31] LABS: IgG, CSF 1.6; Immunoglobulin G, Serum 897
[2024-09-25 08:26] LABS: Coccidioides Ab to F Ag (IgG) Negative
[2024-09-25 08:28] LABS: Coccidioides Ab to TP Ag (IgM) Negative
[2024-09-28 09:19] LABS: Cryptococcus Additional Testin Not Indicated
== END 2024-09-20 03:05 | disposition short-term general hospital (02) | DRG 65 ==
LOC: ANHED 13:15 → ANHIMU 22:39 → ANHICU 09-22 08:56
PROVIDERS: Internal Medicine; Nurse Practitioner Adult Health; Admitting Provider Internal Medicine; Emergency Provider Student in an Organized Health Care Education/Training Program; PCP Emergency Medicine; Visit Provider Internal Medicine
DX: I63.9 Cerebral infarction, unspecified (principal); G93.49 Other encephalopathy; R56.9 Unspecified convulsions; H53.8 Other visual disturbances; R50.9 Fever, unspecified; I10 Essential (primary) hypertension; E11.9 Type 2 diabetes mellitus without complications; F10.20 Alcohol dependence, uncomplicated; F41.1 Generalized anxiety disorder; F17.210 Nicotine dependence, cigarettes, uncomplicated; F32.A Depression, unspecified; E78.5 Hyperlipidemia, unspecified
CPT/HCPCS: 36415; 36600; 62328; 70450; 70496; 70498; 70553; 71045; 71275; 72125; 74174; 80048; 80053; 80061; 80143; 80179; 81001; 82040; 82042; 82077; 82140; 82375; 82550; 82784; 82805; 82945; 82948; 83036; 83050; 83605; 83873; 83916; 84157; 84443; 84484; 85018; 85025; 85610; 85730; 86403; 86592; 86617; 86635; 86787; 86788; 87015; 87040; 87070; 87086; 87102; 87116; 87140; 87205; 87206; 87255; 87497; 87529; 87798; 88108; 89051; 92610; 93005; 95816; 96365; 96368; 96372; 96374; 96375; 96376; 99285; A9270; A9577; G0378; J0696; J1171; J1885; J1953; J2060; J2270; J2405; J2543; J3360; J3370; Q9967